=== PATIENT | male | born 1945 | race American Indian/Alaskan Native ===

== ENCOUNTER 2017-07-17 08:45 | Outpatient (CLI) | payer MEDICARE ==
[2017-07-17] MEDS ORDERED: NACL ONE (09:35)
[2017-07-17 09:42] LABS: Blood Urea Nitrogen 14 mg/dL (9-20)
--- NOTE | 2017-07-17 13:44 | Cat Scan Report ---
CT of the abdomen and pelvis with and without IV contrast and with oral contrast. History: Hematuria, renal stone. Findings: There are multiple sharply circumscribed hypodense lesions within the liver involving both lobes treated the largest of these is 2.2 cm in diameter. The spleen and pancreas are normal. A prominent calcified gallstone is present with no thickening of the gallbladder wall. There is no biliary dilatation. There is a 7 mm in diameter nodule in the left adrenal gland. Right adrenal gland is normal. The precontrast study demonstrates 3 tiny calculi in the right kidney with no hydronephrosis. A single tiny calculus is seen in the upper pole of the left kidney with no hydronephrosis. Multiple small bilateral renal cysts are present. No ureteral dilatation is seen. The prostate is severely enlarged with extrinsic compression of the base of the urinary bladder. There are no other pelvic masses. No significant bony findings are seen. Impression: 1. Multiple hepatic cysts. 2. Benign left adrenal nodule. 3. Bilateral tiny renal stones 1-2 mm in size. No obstructive uropathy. Multiple bilateral renal cysts are present. 4. Severely enlarged prostate with extrinsic compression of the base of the urinary bladder. #5. Cholelithiasis.
== END 2017-07-17 08:46 | disposition home or self-care (01) ==
LOC: CT 08:45
PROVIDERS: ATTEND Urology
DX: N20.2 Calculus of kidney with calculus of ureter (principal); K80.20 Calculus of gallbladder without cholecystitis without obstruction; N28.1 Cyst of kidney, acquired; E27.8 Other specified disorders of adrenal gland; N40.0 Benign prostatic hyperplasia without lower urinary tract symptoms; K76.89 Other specified diseases of liver; N32.89 Other specified disorders of bladder; F17.200 Nicotine dependence, unspecified, uncomplicated
CPT/HCPCS: 36415; 74178; 82565; 84520; Q9967

== ENCOUNTER 2018-12-21 08:48 | Outpatient (CLI) | payer MEDICARE ==
--- NOTE | 2018-12-21 09:24 | XRay Report ---
ABDOMEN RADIOGRAPH INDICATION: Calculus of kidney. COMPARISON: 07/17/2017 CT. FINDINGS: Single frontal abdominal radiograph demonstrates nonobstructive bowel gas pattern. Descending colon stool/possible constipation. Few pelvic vascular calcifications. Few bony degenerative changes as lower lumbar. Bilateral SI joint sclerosis also not excluded. CONCLUSION: No acute abdominal radiographic abnormality with tiny, 1-2 mm bilateral renal calculi known by prior CT may be well below the threshold of plain radiographic detection. Thank you for the opportunity to participate in this patient's care.
--- NOTE | 2018-12-21 13:20 | Ultrasound Report ---
ULTRASOUND RENAL BILATERAL INDICATION: Calculus of kidney. COMPARISON: 09/23/2018. FINDINGS: Renal sonography suggests mild increased renal cortical echogenicity. Grossly preserved contours. Few small echogenic gallstones with mild shadowing incidentally noted about the gallbladder neck, image 12. RIGHT KIDNEY estimated at 10.9 x 5.8 x 5.8 cm with cortical thickness of 1.4 cm. No hydronephrosis. LEFT KIDNEY is 10.5 x 4.3 x 4.61 m with cortical thickness of 1.3 cm. No hydronephrosis, though slight renal pelvis fullness may now be noted. Imaged URINARY BLADDER demonstrates a 5.5 x 4.3 cm rounded prostatic soft tissue with few small intrinsic echogenicities/calcifications, indenting the bladder base as on image 31, amongst others. Please also correlate clinically and with PSA. CONCLUSION: Enlarged prostate indenting the bladder base and underlying medical renal disease suspected sonographically in this patient with few other findings as cholelithiasis and slight left renal collecting system fullness, as described. Please correlate. Thank you for the opportunity to participate in this patient's care.
== END 2018-12-21 08:49 | disposition home or self-care (01) ==
LOC: US 08:48
PROVIDERS: ATTEND Urology
DX: N20.0 Calculus of kidney (principal); K80.20 Calculus of gallbladder without cholecystitis without obstruction; N40.0 Benign prostatic hyperplasia without lower urinary tract symptoms; E78.00 Pure hypercholesterolemia, unspecified; I10 Essential (primary) hypertension; K21.9 Gastro-esophageal reflux disease without esophagitis; Z87.891 Personal history of nicotine dependence
CPT/HCPCS: 74018; 76770

== ENCOUNTER 2021-05-21 05:58 | Day surgery (SDC) | payer MEDICARE ==
[2021-05-21] MEDS ORDERED: LACTATED RINGERS 1,000 ML ONE (06:48)
[2021-05-21] MEDS ORDERED: LACTATED RINGERS 1,000 ML IV SCH (07:00)
[2021-05-21] MEDS ORDERED: propofoL 200 MG/20 ML VIAL IV ONE (07:22)
[2021-05-21] MEDS ORDERED: HYDROmorphone 1 MG/1 ML INJ ONE (07:22)
[2021-05-21] MEDS ORDERED: LIDOCAINE MPF (2%) 20 MG/1 ML VIAL 5 ML ONE (07:23)
[2021-05-21] MEDS ORDERED: HYDROmorphone 1 MG/1 ML INJ IV PRN ×2 (08:21)
[2021-05-21] MEDS ORDERED: ONDANSETRON 4 MG/2 ML INJ IV PRN (08:21)
--- NOTE | 2021-05-21 08:23 | Anesthesia Day of Surgery ---
Anesthesia Day of Surgery - Day of Surgery Patient Examined: Yes Patient H&P Reviewed: Yes Patient is NPO: Yes
--- NOTE | 2021-05-21 08:24 | Anesthesia Consultation ---
Anesthesia Consult and Med Hx Date of service: 05/21/21 - Airway Anesthetic Teeth Evaluation: Dentures, Edentulous ROM Head & Neck: Adequate Mental/Hyoid Distance: Adequate Mallampati Class: Class II Intubation Access Assessment: Good - Pre-Operative Health Status ASA Pre-Surgery Classification: ASA2 Proposed Anesthetic Plan: General - Pulmonary Hx Smoking: Yes (STOPPED X 5 YRS (1 PPD)) Hx Respiratory Symptoms: No Hx Sleep Apnea: No (PRICILA PRE SCREEN HIGH RISK) - Cardiovascular System Hx Hypertension: Yes (X 3 YRS) - Gastrointestinal Hx Gastroesophageal Reflux Disease: Yes - Hematic Hx Sickle Cell Disease: No - Other Systems Hx Alcohol Use: Yes (2-3 DRINKS PER DAY) Hx Substance Use: Yes (MARIJUANA 3-4 X PER DAY) Hx Cancer: No Hx Obesity: No
[2021-05-21] MEDS ORDERED: ceFAZolin/Water 2 GM/20 ML 2 GM/20 ML SYRINGE IV ONE (08:45)
[2021-05-21] MEDS ORDERED: METOCLOPRAMIDE 10 MG/2 ML INJ IV NR (09:00)
[2021-05-21] MEDS ORDERED: WATER FOR IRRIG STERILE 2000 ML IR ONE (09:45)
[2021-05-21] MEDS ORDERED: FUROSEMIDE 40 MG/4 ML INJ ONE (09:54)
[2021-05-21] MEDS ORDERED: FAMOTIDINE 20 MG/2 ML INJ IV SCH (10:00)
--- NOTE | 2021-05-21 10:59 | Post Operative Note ---
Date of procedure: 05/21/21 Pre-op diagnosis: hematuria stricture Post-op diagnosis: same Findings: mass // stricture irereg Procedure: cysto dil bipsies Anesthesia: GETA Surgeon: JUDY JIM Estimated blood loss: minimal Pathology: list (bn and urethra) Specimen disposition: to lab Condition: stable Disposition: PACU
--- NOTE | 2021-05-21 11:00 | Discharge Summary ---
Short Stay Discharge Plan Activity: other (no strain ing ) Weight Bearing Status: Full Weight Bearing Diet: low fat, low cholesterol, low salt Special Instructions: other (folay care ) Durable Medical Equipment Needed Upon Discharge: other (walters) Follow up with: ITZEL CORADO MD [Primary Care Provider] - 7 Days JUDY JIM MD [Staff Physician] - 7 Days Forms: Outpatient Surgery DC Inst.
[2021-05-21] MEDS ORDERED: PHENAZOPYRIDINE 200 MG TAB PO ONE ×2 (11:04→11:10)
[2021-05-21 12:10] VITALS: BP 146/78
--- NOTE | 2021-05-21 12:55 | Operative Report ---
DATE OF SURGERY: 05/21/2021 PREOPERATIVE DIAGNOSES: Urethral stricture, hematuria. POSTOPERATIVE DIAGNOSES: Urethral stricture, hematuria with a mass in the urethra, irregularity of the bladder neck and very large elevated prostate. PROCEDURES: Cystoscopy, urethral dilatation, biopsies of the urethra and bladder neck masses, insertion of Councill catheter. SURGEON: Josef Major MD. ANESTHESIA: General. FINDINGS: This is a gentleman, who has been seen in the past, most recently treated by Dr. Dubose, has hematuria. He has diminished flow. He now presents for evaluation. DESCRIPTION OF PROCEDURE: The patient was brought to the OR and placed on the operating table. Following induction of anesthesia, placed in lithotomy position, prepped and draped in usual sterile fashion. Cystourethroscopy showed a very rock-hard stricture with evidence of a possible mass. This was biopsied after we placed a wire in the bladder under fluoroscopic guidance. Once we dilated this to 22-Malian, we could only use a 20-Malian sheath. It was so tight, we got to the bladder neck, there were irregularities. This was biopsied as well. Prostate was well elevated well into the bladder. At this point, we could not get good visualization. The mass was so big, it looked like prostate, so we placed a Councill catheter. This may need to be a staged procedure. The patient tolerated the procedure well. The cystogram showed good position of the well-elevated bladder from the prostate. Brought to recovery in stable condition. TID: [id number] RECEIPT: [id number] ALICIA/DARRICK
--- NOTE | 2021-05-21 15:46 | Fluoroscopy Report ---
FL cystogram static-OR INDICATION / CLINICAL INFORMATION: Urethral and bladder mass. COMPARISON: CT from 07/17/2017. TECHNIQUE: Patient was catheterized and 20 mL of contrast was administered in a retrograde fashion in to the bladder in the urology department. Radio Commentator, filled frontal, filled oblique, and postvoid images were obtained. FINDINGS: Radio Commentator imaging demonstrates no significant abnormality. Colon filled images, the bladder dem onstrates normal contour and shape with 6.8 cm filling defect in the bladder. Postdrainage demonstrat es diminished bladder volume with persistent filling defect. No evidence of contrast extravasation. IMPRESSION: Bladder mass. No evidence of contrast extravasation. Signer Name: Marcelino Richardson MD Signed: 05/21/2021 3:42 PM Workstation Name: [id number]
--- NOTE | 2021-05-21 16:17 | Post Anesthesia Evaluation ---
- Post Anesthesia Evaluation Patient Participated: Yes Airway Patent: Yes Stable Respiratory Function: Yes Nausea/Vomiting: No Temp > 96.8F: Yes Pain Manageable: Yes Adequeate Hydration: Yes Anesthesia Complications: No Block Receding Appropriately: Not Applicable Patient on Ventilator: No
== END 2021-05-21 12:54 | disposition home or self-care (01) ==
LOC: OR 05:58
PROVIDERS: ATTEND Urology
DX: N35.819 Other urethral stricture, male, unspecified site (principal); Z20.822 Contact with and (suspected) exposure to COVID-19; R31.9 Hematuria, unspecified; E78.00 Pure hypercholesterolemia, unspecified; I10 Essential (primary) hypertension; K21.9 Gastro-esophageal reflux disease without esophagitis; Z87.442 Personal history of urinary calculi; Z88.8 Allergy status to other drugs, medicaments and biological substances; Z88.6 Allergy status to analgesic agent; Z79.899 Other long term (current) drug therapy; Z87.891 Personal history of nicotine dependence; Z98.49 Cataract extraction status, unspecified eye; Z98.890 Other specified postprocedural states; Z72.89 Other problems related to lifestyle; Z80.8 Family history of malignant neoplasm of other organs or systems
CPT/HCPCS: 52281; 74430; 88305; A4217; C1726; C1769; J0690; J1170; J1940; J2704; J2765; J7120; Q9967; U0003; 88342

== ENCOUNTER 2021-11-08 10:39 | Outpatient (CLI) | payer MEDICARE ==
--- NOTE | 2021-11-08 11:47 | Cat Scan Report ---
CT ABDOMEN AND PELVIS WITHOUT CONTRAST INDICATION / CLINICAL INFORMATION: ENLARGED PROSTATE WITH LOWER URINARY TRACT SYMPTOM. TECHNIQUE: Axial CT images were obtained through the abdomen and pelvis without IV contrast. All CT scans at this location are performed using CT dose reduction for ALARA by means of automated exposure control. COMPARISON: 07/17/2017 FINDINGS: LOWER CHEST: No significant abnormality. AORTA / ARTERIES: Mild atherosclerotic calcification without acute abnormality. IVC / VEINS: No significant abnormality. LYMPH NODES: No significant adenopathy. COLON: Diverticulosis without acute inflammation. APPENDIX: No significant abnormality. STOMACH / SMALL BOWEL: No significant abnormality. PERITONEUM: No free fluid. No free air. No fluid collection. LIVER: Multiple hepatic cysts which appear more prominent compared to prior CT. GALLBLADDER: Cholelithiasis. BILE DUCTS: No significant abnormality. PANCREAS: No significant abnormality. SPLEEN: No significant abnormality. ADRENALS: No significant abnormality. RIGHT KIDNEY / URETER: Multiple renal cysts which appear more prominent compared to prior CT. LEFT KIDNEY / URETER: There is a 1.3 cm stone within the upper pole of the kidney. There is also a 1. 4 cm stone at the distal ureterovesicular junction which causes moderate hydroureter and moderate hyd ronephrosis. Several renal cysts which appear increased compared to prior CT. URINARY BLADDER: Large soft tissue prominence is noted within the urinary bladder lumen, likely repre senting a severely enlarged prostate. REPRODUCTIVE ORGANS: Prostate is enlarged, not significant change from prior CT. SKELETAL SYSTEM: No significant abnormality. ADDITIONAL FINDINGS: None. IMPRESSION: 1. There is a 1.4 cm stone within the left ureterovesicular junction which causes moderate hydrourete r and moderate hydronephrosis. There is also an additional 1.3 cm stone within the left kidney. 2. Markedly enlarged prostate encroaching upon the posterior urinary bladder wall. This does not appe ar significantly changed in size compared to prior CT. 3. Urinary bladder stone measuring up to 0.6 cm. 4. Other findings as above. Signer Name: Herman Krause DO Signed: 11/08/2021 11:43 AM Workstation Name: [email or web address]
== END 2021-11-08 10:40 | disposition home or self-care (01) ==
LOC: CT 10:39
PROVIDERS: ATTEND Urology
DX: K80.20 Calculus of gallbladder without cholecystitis without obstruction (principal); N40.1 Benign prostatic hyperplasia with lower urinary tract symptoms; I25.10 Atherosclerotic heart disease of native coronary artery without angina pectoris; I70.0 Atherosclerosis of aorta; K57.30 Diverticulosis of large intestine without perforation or abscess without bleeding; K76.89 Other specified diseases of liver; N28.1 Cyst of kidney, acquired; N20.0 Calculus of kidney; N13.30 Unspecified hydronephrosis
CPT/HCPCS: 74176

== ENCOUNTER 2021-12-24 05:53 | Inpatient (IN) | payer MEDICARE ==
[2021-12-24] MEDS ORDERED: LACTATED RINGERS 1,000 ML IV SCH (06:00)
[2021-12-24] MEDS ORDERED: ONDANSETRON 4 MG/2 ML INJ IV PRN (07:35)
--- NOTE | 2021-12-24 07:35 | Anesthesia Consultation ---
Anesthesia Consult and Med Hx - Airway Anesthetic Teeth Evaluation: Dentures (full upper and lower) ROM Head & Neck: Adequate Mental/Hyoid Distance: Adequate Mallampati Class: Class II Intubation Access Assessment: Probably Good (previous LMA 4) - Pre-Operative Health Status ASA Pre-Surgery Classification: ASA2 Proposed Anesthetic Plan: General - Pulmonary Hx Smoking: Yes (former smoker quit cigs >5yrs ago; currently THC only) Hx Respiratory Symptoms: No Hx Sleep Apnea: No (PRICILA PRE SCREEN HIGH RISK) - Cardiovascular System Hx Hypertension: Yes (took amlodipine last night) Hx Heart Attack/AMI: No Hx Percutaneous Transluminal Coronary Angioplasty (PTCA): No - Central Nervous System CVA: No - Endocrine Hx Renal Disease: No Hx Liver Disease: No Hx Insulin Dependent Diabetes: No Hx Non-Insulin Dependent Diabetes: No Hx Thyroid Disease: No - Other Systems Hx Substance Use: Yes (THC 3-4x/wk) - Additional Comments Anesthesia Medical History Comments: No hx anesthetic complications.
--- NOTE | 2021-12-24 07:35 | Anesthesia Day of Surgery ---
Anesthesia Day of Surgery - Day of Surgery Patient Examined: Yes Patient H&P Reviewed: Yes Patient is NPO: Yes
[2021-12-24] MEDS ORDERED: propofoL 200 MG/20 ML VIAL IV ONE (07:46)
[2021-12-24] MEDS ORDERED: LIDOCAINE MPF (2%) 20 MG/1 ML VIAL 5 ML ONE (07:47)
[2021-12-24] MEDS ORDERED: fentaNYL 100 MCG/2 ML INJ ONE (07:47)
[2021-12-24] MEDS ORDERED: HYDROcodone/ACETAMINOPHEN 5-325 MG TAB PO PRN ×2 (08:00→11:59)
[2021-12-24] MEDS ORDERED: ceFAZolin/STERILE WATER 2 GM/20 ML SYRINGE IV NR (08:07)
[2021-12-24] MEDS ORDERED: ceFAZolin/Water 2 GM/20 ML 2 GM/20 ML SYRINGE IV ONE (08:12)
[2021-12-24] MEDS ORDERED: ONDANSETRON 4 MG/2 ML INJ ONE (08:42)
[2021-12-24] MEDS ORDERED: LIDOCAINE 2% UROJECT 10 ML JELLY ONE (08:55)
[2021-12-24] MEDS ORDERED: IOHEXOL 300 MG/ML 50ML IV ONE (09:04)
[2021-12-24] MEDS ORDERED: METHYLENE BLUE 50 MG/10 ML AMP ONE (09:06)
[2021-12-24] MEDS ORDERED: FUROSEMIDE 40 MG/4 ML INJ ONE (09:23)
[2021-12-24] MEDS ORDERED: SODIUM CHLORIDE IRRI 1000 ML 1,000 ML IR ONE ×4 (09:35→19:01)
--- NOTE | 2021-12-24 09:37 | Post Operative Note ---
Date of procedure: 12/24/21 Pre-op diagnosis: stricture bph left stones Post-op diagnosis: same Findings: 3 cm penile ureterhal struictue large gland inflammed Procedure: cysto dil cystogram attempted rpg Anesthesia: GETA Surgeon: JUDY JIM Estimated blood loss: 50-100ml Pathology: none Condition: stable Disposition: PACU
--- NOTE | 2021-12-24 09:38 | Discharge Summary ---
Short Stay Discharge Plan Activity: other Weight Bearing Status: Full Weight Bearing Diet: low fat Special Instructions: other (cath care ) Durable Medical Equipment Needed Upon Discharge: other (walters) Follow up with: KRZYSZTOF MCCALLUM MD [Primary Care Provider] - 7 Days JUDY JIM MD [Staff Physician] - 3 Days
[2021-12-24] MEDS: HYDROmorphone 1 MG/1 ML INJ IV PRN ×2 (10:00→10:10)
--- NOTE | 2021-12-24 10:34 | Fluoroscopy Report ---
INTRAOPERATIVE FLUOROSCOPY INDICATION / CLINICAL INFORMATION: URETERAL STRICTURE, KIDNEY STONES. TECHNIQUE: Intraoperative spot images were obtained during the procedure. FINDINGS: Intraoperative fluoroscopy images See operative/procedure note by performing physician for full details. Fluoroscopy Time: 0.4 minutes. Fluoroscopy Images: 4. Signer Name: Rush Diggs MD Signed: 12/24/2021 10:29 AM Workstation Name: [email or web address]
--- NOTE | 2021-12-24 11:26 | Consultation ---
History of Present Illness - Reason for Consult Consult date: 12/24/21 Renal calculi Requesting physician: JUDY JIM - History of Present Illness 76-year-old male with past medical history of hypertension, former smoking, and hematuria with BPH and renal calculi who presents after attempted cystoscopic stent placement for evaluation for PCN for PCNL. Discussed situation with patient who currently is denying any flank pain or pelvic pain. Discussed placement of PCN tomorrow. Patient is uncertain if he wants this performed. Past History Past Medical History: hypertension, other (Renal calculi, BPH, urethral strict ures) Past Surgical History: Other (urethral strictures dilatations, BPH procedures) Social history: no significant social history Family history: no significant family history Medications and Allergies Allergies Allergy/AdvReac Type Severity Reaction Status Date / Time aspirin AdvReac GI UPSET / Verified 12/13/21 17:52 ABD PAIN Home Medications Medication Instructions Recorded Confirmed Last Taken Type Tamsulosin [Flomax] 0.4 mg PO QDAY 09/21/13 12/24/21 12/23/21 09:00 History AtorvaSTATin [Lipitor] 40 mg PO QHS 05/14/21 12/24/21 12/23/21 22:00 History Cimetidine [Tagamet Hb] 200 mg PO PRN PRN 05/14/21 12/13/21 Unknown History Lactobacillus Combination No.8 1 each PO DAILY 05/14/21 12/24/21 12/23/21 09:00 History [Adult Probiotic] Multivit-Min/FA/Lycopen/Lutein 1 each PO DAILY 05/14/21 12/24/21 12/23/21 09:00 History [Centrum Silver Tablet] amLODIPine [Norvasc] 5 mg PO DAILY 05/14/21 12/24/21 12/23/21 22:00 History Active Meds: Active Medications Hydrocodone Bitart/Acetaminophen (Hydrocodone/Acetaminophen 5-325 Mg Tab) 2 each PO ONCE PRN PRN Reason: Pain, Moderate (4-6) Hydromorphone HCl (Hydromorphone 1 Mg/1 Ml Inj) 0.5 mg IV Q10MIN PRN PRN Reason: Pain , Severe (7-10) Stop: 12/24/21 20:00 Last Admin: 12/24/21 10:10 Dose: 0.5 mg Lactated Ringer's (Lactated Ringers) 1,000 mls @ 100 mls/hr IV DIRECT [place] Stop: 12/24/21 23:59 Last Admin: 12/24/21 06:30 Dose: 100 mls/hr Potassium Chloride/Dextrose/Sod Cl (D5w/0.45% Nacl/Kcl 20 Meq) 20 meq in 1,000 mls @ 125 mls/hr IV DIRECT [place] Cefazolin Sodium (Ancef/Ns 1 Gm/50 Ml) 1 gm in 50 mls @ 100 mls/hr IV Q8H [place]; Protocol Stop: 12/25/21 12:29 Ondansetron HCl (Ondansetron 4 Mg Odt Tab) 4 mg PO Q8H PRN PRN Reason: Nausea And Vomiting Oxycodone/Acetaminophen (Oxycodone /Acetaminophen 5-325mg Tab) 1 tab PO Q6H PRN PRN Reason: Pain, Moderate (4-6) Review of Systems All systems: negative (see HPI) Exam - Constitutional Vitals: Temp Pulse Resp BP Pulse Ox 97.5 F L 74 14 129/75 99 12/24/21 10:45 12/24/21 10:45 12/24/21 10:45 12/24/21 10:45 12/24/21 10:45 General appearance: Present: no acute distress - EENT Eyes: Present: EOM intact ENT: hearing intact - Respiratory Respiratory effort: normal - Extremities Extremities: no ischemia, No edema - Abdominal General gastrointestinal: Present: soft, non-tender Male genitourinary: Present: asymmetrical (Horton in place) - Psychiatric Psychiatric: appropriate mood/affect, cooperative Results - Imaging and Cardiology CT scan - abdomen: report reviewed, image reviewed Assessment and Plan 76-year-old male with multiple urologic issues including massively enlarged prostate with left-sided renal calculi. Patient has minimal symptoms, but has a left lower pole large renal calculi and a left impacted ureterovesicular calculi both of which are large and were unable to be addressed cystoscopically due to the massively enlarged prostate. Discussed left-sided percutaneous nephrostomy with patient. Risks, benefits, and alternatives discussed. Patient wants to talk this over with Dr. Jim before agreeing to any procedures.
[2021-12-24] MEDS ORDERED: ACETAMINOPHEN 325 MG TAB PO PRN ×3 (11:52→12:03)
[2021-12-24] MEDS ORDERED: ONDANSETRON 4 MG ODT TAB PO PRN (12:00)
[2021-12-24] MEDS ORDERED: oxyCODONE /ACETAMINOPHEN 5-325MG TAB PO PRN (12:00)
--- NOTE | 2021-12-24 12:08 | Post Anesthesia Evaluation ---
- Post Anesthesia Evaluation Patient Participated: Yes Airway Patent: Yes Stable Respiratory Function: Yes Nausea/Vomiting: No Temp > 96.8F: Yes Pain Manageable: Yes Adequeate Hydration: Yes Anesthesia Complications: No
[2021-12-24 12:39] LABS: BUN/Creatinine Ratio 14; Blood Urea Nitrogen 17 mg/dL (9-20); Calcium 10.3 mg/dL (8.4-10.2); Hemolysis Index 12
[2021-12-24] MEDS: HYDROcodone/ACETAMINOPHEN 5-325 MG TAB PO PRN ×2 (14:20→21:17)
--- NOTE | 2021-12-24 14:20 | Operative Report ---
DATE OF SURGERY: 12/24/2021 PREOPERATIVE DIAGNOSES: Left ureteral obstruction, left hydronephrosis, very large prostate, history of urethral stricture. POSTOPERATIVE DIAGNOSES: Left ureteral obstruction, left hydronephrosis, very large prostate, history of urethral stricture. PROCEDURES: Cystoscopy, urethral dilatation attempted retrograde. SURGEON: Josef Mjaor MD ANESTHESIA: General. FINDINGS: This is a gentleman with a very large prostate and urethral stricture. He was found to have a ureteral stone with really no significant pain, but moderate hydronephrosis. He now presents for treatment. DESCRIPTION OF PROCEDURE: The patient was brought to the operating room and placed on the operating table. Following induction of anesthesia, placed in lithotomy position, prepped and draped in usual sterile fashion. Approximately 3-4 cm into the urethra, there was a dense long stricture. Before manipulating, we placed a wire in the bladder under fluoroscopic guidance and dilated that to 20-Mongolian. We used a 20-Mongolian sheath. It should be noted once we got to the prostatic urethra, there was severe elevation of bladder neck. We were able to get into the bladder, but the prostate deviated more to the right than to the left and when we were looking, it looked like we saw the orifice was with lot of inflammatory changes around it. We tried our best even with indigo to visualize the trigone, but every time we manipulated the scope there would be oozing from this large enormous prostate. We gave him some Lasix with indigo, could not definitively identify the orifice with the inflammatory changes around it, so we decided to stop. The patient tolerated the procedure well. A 22 was placed over an Amplatz wire and irrigation was minimally tinge. We irrigated him in the recovery room, but it was even less bloody, but we decided to stop because we did not want to cause more damage. I spoke to Dr. Kent who thought the prostate was just huge, but he could put a percutaneous drainage tube in the left kidney to try to cool this down and maybe we can go ahead it from above with a flexible ureteroscope from above. The patient tolerated the procedure well. I spoke to the family. Again, there is a ____. TID: [id number] RECEIPT: [id number] Maikel/ADAMS/IQB
[2021-12-24] MEDS: ceFAZolin/NS 1 GM/50 ML 1 GM/50 ML BAG IV SCH (15:47)
--- NOTE | 2021-12-24 16:05 | Progress Note ---
Assessment and Plan urine tingd itrrigates may also need embiolization for left perc tomorrow expalined again Subjective Date of service: 12/24/21 Principal diagnosis: stones huge prostate stricture Objective - Constitutional Vitals: Vital Signs - 12hr 12/24/21 12/24/21 12/24/21 06:20 06:35 09:45 Temperature 98.8 F 98.8 F 97.8 F Pulse Rate 81 81 77 Respiratory 16 16 13 Rate Blood Pressure 139/77 139/77 110/71 O2 Sat by Pulse 99 99 100 Oximetry 12/24/21 12/24/21 12/24/21 09:50 09:55 10:00 Temperature Pulse Rate 76 73 69 Respiratory 12 20 12 Rate Blood Pressure 141/76 138/77 139/67 O2 Sat by Pulse 100 100 100 Oximetry 12/24/21 12/24/21 12/24/21 10:10 10:15 10:30 Temperature Pulse Rate 72 71 Respiratory 12 17 12 Rate Blood Pressure 125/74 136/76 O2 Sat by Pulse 99 99 Oximetry 12/24/21 12/24/21 12/24/21 10:40 10:45 11:45 Temperature 97.5 F L 97.9 F Pulse Rate 74 74 Respiratory 14 14 16 Rate Blood Pressure 129/75 129/75 O2 Sat by Pulse 99 99 Oximetry 12/24/21 12/24/21 12/24/21 12:45 13:45 14:20 Temperature 98.0 F 98.1 F Pulse Rate 84 84 Respiratory 12 13 13 Rate Blood Pressure 114/68 116/68 O2 Sat by Pulse 97 99 Oximetry 12/24/21 12/24/21 14:45 15:20 Temperature 98.5 F Pulse Rate 83 Respiratory 13 12 Rate Blood Pressure 129/76 O2 Sat by Pulse 99 Oximetry General appearance: Present: no acute distress, other - Labs CBC & Chem 7: 12/24/21 12:00 Labs: Abnormal lab results 12/24/21 Range/Units 12:00 Glucose 105 H (75-100) mg/dL Calcium 10.3 H (8.4-10.2) mg/dL Medications & Allergies - Medications Allergies/Adverse Reactions: Allergies aspirin Adverse Reaction (Verified 12/13/21 17:52) GI UPSET / ABD PAIN Home Medications: Home Medications Medication Instructions Recorded Confirmed Last Taken Type Tamsulosin [Flomax] 0.4 mg PO QDAY 10/29/13 01/31/22 01/30/22 09:00 History AtorvaSTATin [Lipitor] 40 mg PO QHS 05/14/21 12/24/21 12/23/21 22:00 History Cimetidine [Tagamet Hb] 200 mg PO PRN PRN 05/14/21 12/13/21 Unknown History Lactobacillus Combination No.8 1 each PO DAILY 05/14/21 12/24/21 12/23/21 09:00 History [Adult Probiotic] Multivit-Min/FA/Lycopen/Lutein 1 each PO DAILY 05/14/21 12/24/21 12/23/21 09:00 History [Centrum Silver Tablet] amLODIPine [Norvasc] 5 mg PO DAILY 05/14/21 12/24/21 12/23/21 22:00 History Active Medications: Generic Name Dose Route Start Last Admin Trade Name Freq PRN Reason Stop Dose Admin Acetaminophen 650 mg 12/24/21 12:03 Acetaminophen 325 Mg Tab PO Q4H PRN Pain MILD(1-3)/Fever >100.5/LINK Hydrocodone Bitart/Acetaminophen 2 each 12/24/21 12:03 12/24/21 14:20 Hydrocodone/Acetaminophen 5-325 Mg Tab PO 1 each Q6H PRN Administration Pain, Moderate (4-6) Hydromorphone HCl 0.5 mg 12/24/21 08:00 12/24/21 10:10 Hydromorphone 1 Mg/1 Ml Inj IV 12/24/21 20:00 0.5 mg Q10MIN PRN Administration Pain , Severe (7-10) Potassium Chloride/Dextrose/Sod Cl 20 meq in 1,000 mls @ 125 mls/hr 12/24/21 12:00 D5w/0.45% Nacl/Kcl 20 Meq IV DIRECT [place] Cefazolin Sodium 1 gm in 50 mls @ 100 mls/hr 12/24/21 16:00 12/24/21 15:47 Ancef/Ns 1 Gm/50 Ml IV 12/25/21 16:29 100 mls/hr Q8H [place] Administration Protocol Ondansetron HCl 4 mg 12/24/21 12:00 Ondansetron 4 Mg Odt Tab PO Q8H PRN Nausea And Vomiting
--- NOTE | 2021-12-24 16:27 | Consultation ---
History of Present Illness - Reason for Consult Consult date: 12/24/21 Medical management Requesting physician: JUDY JIM - History of Present Illness 76 YO Male with HTN, BPH, Renal Calculi admitted for urologic surgery. Consult placed by Dr. Jim for medical management. Patient seen and evaluated in his room. Patient resting comfortably. Patient denies fever, chills, chest pain, palpitation, productive cough, skin rash, recent ill contacts, or known exposure to COVID-19. Past History Past Medical History: hypertension, other (Renal calculi, BPH, urethral strictures) Past Surgical History: Other (urethral strictures dilatations, BPH procedures) Social history: no significant social history Family history: no significant family history Medications and Allergies Allergies Allergy/AdvReac Type Severity Reaction Status Date / Time aspirin AdvReac GI UPSET / Verified 12/13/21 17:52 ABD PAIN Home Medications Medication Instructions Recorded Confirmed Last Taken Type Tamsulosin [Flomax] 0.4 mg PO QDAY 09/21/13 12/24/21 12/23/21 09:00 History AtorvaSTATin [Lipitor] 40 mg PO QHS 05/14/21 12/24/21 12/23/21 22:00 History Cimetidine [Tagamet Hb] 200 mg PO PRN PRN 05/14/21 12/13/21 Unknown History Lactobacillus Combination No.8 1 each PO DAILY 05/14/21 12/24/21 12/23/21 09:00 History [Adult Probiotic] Multivit-Min/FA/Lycopen/Lutein 1 each PO DAILY 05/14/21 12/24/21 12/23/21 09:00 History [Centrum Silver Tablet] amLODIPine [Norvasc] 5 mg PO DAILY 05/14/21 12/24/21 12/23/21 22:00 History Active Meds: Active Medications Acetaminophen (Acetaminophen 325 Mg Tab) 650 mg PO Q4H PRN PRN Reason: Pain MILD(1-3)/Fever >100.5/LINK Hydrocodone Bitart/Acetaminophen (Hydrocodone/Acetaminophen 5-325 Mg Tab) 2 each PO Q6H PRN PRN Reason: Pain, Moderate (4-6) Last Admin: 12/24/21 14:20 Dose: 1 each Hydromorphone HCl (Hydromorphone 1 Mg/1 Ml Inj) 0.5 mg IV Q10MIN PRN PRN Reason: Pain , Severe (7-10) Stop: 12/24/21 20:00 Last Admin: 12/24/21 10:10 Dose: 0.5 mg Potassium Chloride/Dextrose/Sod Cl (D5w/0.45% Nacl/Kcl 20 Meq) 20 meq in 1,000 mls @ 125 mls/hr IV DIRECT [place] Cefazolin Sodium (Ancef/Ns 1 Gm/50 Ml) 1 gm in 50 mls @ 100 mls/hr IV Q8H [place]; Protocol Stop: 12/25/21 16:29 Last Admin: 12/24/21 15:47 Dose: 100 mls/hr Ondansetron HCl (Ondansetron 4 Mg Odt Tab) 4 mg PO Q8H PRN PRN Reason: Nausea And Vomiting Review of Systems Constitutional: no weight loss, no weight gain, no fever Ears, nose, mouth and throat: no ear pain, no tinnitis, no nose pain, no nasal discharge Cardiovascular: no chest pain, no palpitations, no edema, no lightheadedness Respiratory: no cough, no hemoptysis, no shortness of breath Gastrointestinal: no abdominal pain, no vomiting, no constipation Genitourinary Male: dysuria Rectal: no pain, no incontinence Musculoskeletal: no neck stiffness, no neck pain, no arm numbness/tingling, no low back pain, no shooting leg pain Integumentary: no rash, no redness, no wounds, no boils Neurological: no head injury, no paralysis, no numbness, no ataxia Psychiatric: no anxiety, no sleep disturbances, no hypersomnia, no change in libido, no suicidal ideation Endocrine: no cold intolerance, no excessive thirst, no polyuria, no excessive sweating Allergic/Immunologic: no allergic rhinitis, no wheezing Exam - Constitutional Vitals: Temp Pulse Resp BP Pulse Ox 98.5 F 83 12 129/76 99 12/24/21 14:45 12/24/21 14:45 12/24/21 15:20 12/24/21 14:45 12/24/21 14:45 General appearance: Present: no acute distress, well-nourished - EENT Eyes: Present: PERRL ENT: hearing intact, clear oral mucosa - Neck Neck: Present: supple, normal ROM - Respiratory Respiratory effort: normal Respiratory: bilateral: CTA - Cardiovascular Heart Sounds: Present: S1 & S2. Absent: rub, click - Extremities Extremities: pulses symmetrical, No edema Peripheral Pulses: within normal limits - Abdominal General gastrointestinal: Present: soft, non-tender, non-distended, normal bowel sounds Male genitourinary: Present: normal - Integumentary Integumentary: Present: clear, warm, dry - Musculoskeletal Musculoskeletal: gait normal, strength equal bilaterally - Psychiatric Psychiatric: appropriate mood/affect, intact judgment & insight - Neurologic Neurologic: CNII-XII intact, moves all extremities Results - Labs CBC & Chem 7: 12/24/21 12:00 Labs: Abnormal lab results 12/24/21 Range/Units 12:00 Glucose 105 H (75-100) mg/dL Calcium 10.3 H (8.4-10.2) mg/dL Assessment and Plan - Patient Problems (1) Hypertension Current Visit: Yes Status: Acute Qualifiers: Hypertension type: primary hypertension Qualified Code(s): I10 - Essential (primary) hypertension Plan to address problem: Monitor blood pressure every shift, continue medical management. (2) Renal calculi Current Visit: Yes Status: Acute Plan to address problem: Interventional radiology team consulted. Patient is pending percutaneous nephrostomy tube in a.m.
--- NOTE | 2021-12-24 17:49 | Cat Scan Report ---
CT ABDOMEN AND PELVIS WITHOUT CONTRAST INDICATION / CLINICAL INFORMATION: Hydronephrosis with left renal calculi. Prone.. TECHNIQUE: Axial CT images were obtained through the abdomen and pelvis without IV contrast. All CT scans at this location are performed using CT dose reduction for ALARA by means of automated exposure control. COMPARISON: CT from 11/08/2021. FINDINGS: LOWER CHEST: Bibasilar volume loss. LIVER: Multiple bilobar hepatic cysts are again seen. GALLBLADDER/BILIARY TREE: No significant abnormality PANCREAS: No significant abnormality SPLEEN: No significant abnormality ADRENALS: No significant abnormality KIDNEYS / URETER: 1.4 cm stone is present at the left UVJ with worsening, severe left hydronephrosis when compared to prior study from 11/08/2021. There is an additional 1 cm stone in the left lower vamsi e calyx. Multiple renal cysts. No urolithiasis or hydronephrosis on the right. URINARY BLADDER: Horton catheter decompresses the bladder. REPRODUCTIVE ORGANS: Marked prostatomegaly, which is again noted to protrude into the bladder. STOMACH / BOWEL: Small bowel is normal in caliber. Colonic diverticulosis without evidence of diverti culitis. The appendix is normal in caliber. LYMPH NODES: No significant adenopathy. VASCULATURE: Moderate atherosclerotic calcification without acute abnormality. OTHER: No free air, free fluid, or focal fluid collection is identified. SKELETAL SYSTEM: Degenerative changes of the spine. No acute osseous findings. IMPRESSION: 1. 1.4 cm obstructing stone at the left UVJ with worsening severe left hydroureteronephrosis. 2. Additional 1 cm nonobstructive left renal stone. Other stable chronic and incidental findings as a nury. Signer Name: Marcelino Richardson MD Signed: 12/24/2021 5:44 PM Workstation Name: [id number]
[2021-12-24] MEDS: D5W/0.45% NACL/KCL 20 MEQ 20 MEQ/1,000 ML BAG IV SCH (17:52)
[2021-12-25 07:57] LABS: Basophils % (Auto) 0.3 % (0.0-1.8); Eosinophils # (Auto) 0.5 K/mm3 (0.0-0.4); Eosinophils % (Auto) 6.8 % (0.0-4.3); Hematocrit 34.9 % (35.5-45.6); Hemoglobin 11.3 gm/dl (11.8-15.2); Lymphocytes # (Auto) 1.4 K/mm3 (1.2-5.4); Lymphocytes % (Auto) 19.8 % (13.4-35.0); Mean Corpuscular HGB Conc 32 % (32-34); Mean Corpuscular Volume 89 fl (84-94); Monocytes # (Auto) 0.4 K/mm3 (0.0-0.8); Monocytes % (Auto) 5.9 % (0.0-7.3); Platelet Count 184 K/mm3 (140-440); Red Blood Count 3.92 M/mm3 (3.65-5.03); Red Cell Distribution Width 13.6 % (13.2-15.2)
--- NOTE | 2021-12-25 09:22 | Progress Note ---
Assessment and Plan spoke again with pt diagrams drawn on board explained stones scarring blocked kidney and huge proste he now agrrees to perc Subjective Date of service: 12/25/21 Principal diagnosis: stones huge prostate stricture Objective - Constitutional Vitals: Vital Signs - 12hr 12/24/21 12/25/21 12/25/21 22:33 01:33 04:49 Temperature 97.7 F 98.1 F Pulse Rate 78 77 Respiratory 20 20 Rate Blood Pressure 136/71 134/76 O2 Sat by Pulse 96 98 95 Oximetry General appearance: Present: no acute distress - Neck Neck: supple - Respiratory Respiratory effort: normal Extremities: no ischemia - Gastrointestinal General gastrointestinal: Present: soft - Labs CBC & Chem 7: 12/25/21 07:39 12/24/21 12:00 Labs: Abnormal lab results 12/24/21 12/25/21 Range/Units 12:00 07:39 Hgb 11.3 L (11.8-15.2) gm/dl Hct 34.9 L (35.5-45.6) % Eos % (Auto) 6.8 H (0.0-4.3) % Eos # (Auto) 0.5 H (0.0-0.4) K/mm3 Glucose 105 H (75-100) mg/dL Calcium 10.3 H (8.4-10.2) mg/dL Medications & Allergies - Medications Allergies/Adverse Reactions: Allergies aspirin Adverse Reaction (Verified 12/13/21 17:52) GI UPSET / ABD PAIN Home Medications: Home Medications Medication Instructions Recorded Confirmed Last Taken Type Tamsulosin [Flomax] 0.4 mg PO QDAY 09/21/13 12/24/21 12/23/21 09:00 History AtorvaSTATin [Lipitor] 40 mg PO QHS 05/14/21 12/24/21 12/23/21 22:00 History Cimetidine [Tagamet Hb] 200 mg PO PRN PRN 05/14/21 12/13/21 Unknown History Lactobacillus Combination No.8 1 each PO DAILY 05/14/21 12/24/21 12/23/21 09:00 History [Adult Probiotic] Multivit-Min/FA/Lycopen/Lutein 1 each PO DAILY 05/14/21 12/24/21 12/23/21 09:00 History [Centrum Silver Tablet] amLODIPine [Norvasc] 5 mg PO DAILY 05/14/21 12/24/21 12/23/21 22:00 History Active Medications: Generic Name Dose Route Start Last Admin Trade Name Ana PRN Reason Stop Dose Admin Acetaminophen 650 mg 12/24/21 12:03 Acetaminophen 325 Mg Tab PO Q4H PRN Pain MILD(1-3)/Fever >100.5/LINK Hydrocodone Bitart/Acetaminophen 2 each 12/24/21 12:03 12/24/21 21:17 Hydrocodone/Acetaminophen 5-325 Mg Tab PO 1 each Q6H PRN Administration Pain, Moderate (4-6) Potassium Chloride/Dextrose/Sod Cl 20 meq in 1,000 mls @ 125 mls/hr 12/24/21 12:00 12/24/21 17:52 D5w/0.45% Nacl/Kcl 20 Meq IV 125 mls/hr DIRECT [place] Administration Cefazolin Sodium 1 gm in 50 mls @ 100 mls/hr 12/24/21 16:00 12/24/21 15:47 Ancef/Ns 1 Gm/50 Ml IV 12/25/21 16:29 100 mls/hr Q8H [place] Administration Protocol Ondansetron HCl 4 mg 12/24/21 12:00 Ondansetron 4 Mg Odt Tab PO Q8H PRN Nausea And Vomiting
[2021-12-25] MEDS ORDERED: LIDOCAINE 1%/EPINEPHRINE 1:100,000 VIAL (20 ML) INFILTRATI ONE ×3 (12:59→14:31)
[2021-12-25] MEDS ORDERED: HEPARIN 10,000 UNITS/10 ML VIAL ONE (12:59)
--- NOTE | 2021-12-25 13:02 | Progress Note ---
Assessment and Plan (1) Hypertension Current Visit: Yes Status: Acute Qualifiers: Hypertension type: primary hypertension Qualified Code(s): I10 - Essential (primary) hypertension Plan to address problem: Monitor blood pressure every shift, continue medical management. (2) Renal calculi Current Visit: Yes Status: Acute Plan to address problem: Interventional radiology team consulted. Patient is pending percutaneous nephrostomy tube in a.m. Subjective Date of service: 12/25/21 Principal diagnosis: stones huge prostate stricture Objective - Constitutional Vitals: Vital Signs - 12hr 12/25/21 12/25/21 01:33 04:49 Temperature 98.1 F Pulse Rate 77 Respiratory 20 Rate Blood Pressure 134/76 O2 Sat by Pulse 98 95 Oximetry - Labs CBC & Chem 7: 12/25/21 07:39 12/24/21 12:00 Labs: Abnormal lab results 12/25/21 Range/Units 07:39 Hgb 11.3 L (11.8-15.2) gm/dl Hct 34.9 L (35.5-45.6) % Eos % (Auto) 6.8 H (0.0-4.3) % Eos # (Auto) 0.5 H (0.0-0.4) K/mm3
[2021-12-25] MEDS ORDERED: SODIUM CHLORIDE IRRI 500 ML 500 ML IR ONE (13:05)
[2021-12-25] MEDS ORDERED: MIDAZOLAM 2 MG/2 ML INJ ONE (13:36)
[2021-12-25] MEDS ORDERED: fentaNYL 100 MCG/2 ML INJ ONE (13:36)
--- NOTE | 2021-12-25 14:06 | Post Anesthesia Evaluation ---
- Post Anesthesia Evaluation Other Comments: Patient was discharged from the department prior the post-op anesthesia rounds
[2021-12-25] MEDS ORDERED: MIDAZOLAM 2 MG/2 ML INJ IV ONE ×4 (14:15→14:40)
[2021-12-25] MEDS ORDERED: fentaNYL 100 MCG/2 ML INJ IV ONE ×4 (14:16→14:45)
--- NOTE | 2021-12-25 14:59 | Operative Report ---
Operative Report Operative Report: EXAM: Left lower pole posterior percutaneous nephrostomy tube placement Left nephrostogram and antegrade ureterogram DATE: 12/25/2021 DRY MILL OPERATOR: SANDY KHALIL MD INDICATION: Left-sided moderate to severe hydronephrosis with obstructing ureteral vesicular calculi with inability to treat patient cystoscopically who requires PCN, and will later require PCNU for PCNL. MEDICATIONS: Please see nursing report for full details. DEVICES: 8 Jordanian nephrostomy tube CONTRAST: Please see Service Associate report for full details PROCEDURE: The risks, benefits, and alternatives were discussed with the patient; informed consent was obtained. The patient was prepped and draped in a sterile fashion in the prone position. The left flank was evaluated with ultrasound. Under direct ultrasound guidance, the left lower pole posterior collecting system was punctured with a 21-gauge echo tipped needle. Urine was aspirated. Contrast was injected documenting the collecting system. Wire was passed under direct fluoroscopic guidance into the central portion of the collecting system and into the ureter. Needle was exchanged for a 6 Jordanian transitional dilator Accustick system. After the dilator was advanced over the wire, the wire, inner metal cannula and inner dilator were removed. Contrast was injected confirming position within the collecting system. 4 Jordanian catheter and Glidewire were then passed through the ureter and through the obstructing ureteral calculi and into the bladder. Contrast was injected to the bladder documenting location and demonstrating the large prostate. 0.035 inch Amplatz wire was advanced through the catheter. Transitional dilator was exchanged for an 8 Jordanian dilator. 8 Jordanian nephrostomy tube was then advanced over the wire. Wire was removed. The nephrostomy tube was positioned in the renal pelvis and the cope loop was successfully deployed. The nephrostomy tube was secured with 2-0 Ethilon. StatLock device was used to secure the nephrostomy tube. Nephrostomy tube was attached to a drainage bag. Patient tolerated the procedure well and was transferred out of the angiography suite in stable condition. FINDINGS: The left renal pelvis and collecting system is severely hydronephrotic with a floating renal calculi within the system and a large obstructing calculi at the ureterovesicular junction causing the resultant hydronephrosis. IMPRESSION: Nephrostograms and antegrade ureterogram of the left collecting system demonstrates the left renal pelvis and collecting system is severely hydronephrotic with a floating renal calculi within the system and a large obstructing calculi at the ureterovesicular junction causing the resultant hydronephrosis. Successful nephrostomy tube placement in the left collecting system through a lower pole posterior calyx.
[2021-12-25] MEDS: HYDROcodone/ACETAMINOPHEN 5-325 MG TAB PO PRN (16:42)
[2021-12-25] MEDS: D5W/0.45% NACL/KCL 20 MEQ 20 MEQ/1,000 ML BAG IV SCH (16:44)
[2021-12-25] MEDS: ceFAZolin/NS 1 GM/50 ML 1 GM/50 ML BAG IV SCH (16:45)
[2021-12-25] MEDS ORDERED: ZOLPIDEM 5 MG TAB PO PRN (22:00)
[2021-12-26] MEDS: ceFAZolin/NS 1 GM/50 ML 1 GM/50 ML BAG IV SCH ×2 (00:30→00:32)
[2021-12-26] MEDS: HYDROcodone/ACETAMINOPHEN 5-325 MG TAB PO PRN ×3 (00:37→15:53)
[2021-12-26] MEDS: D5W/0.45% NACL/KCL 20 MEQ 20 MEQ/1,000 ML BAG IV SCH (04:11)
--- NOTE | 2021-12-26 13:08 | Discharge Summary ---
Short Stay Discharge Plan Activity: other (no straing ) Weight Bearing Status: Full Weight Bearing Diet: low fat, low salt Wound: open to air Special Instructions: other (teach neph tube care ) Follow up with: JUDY JIM MD [Staff Physician] - 3 Days KRZYSZTOF MCCALLUM MD [Primary Care Provider] - 7 Days
--- NOTE | 2021-12-26 13:08 | Progress Note ---
Assessment and Plan insists on walters out perc draining well severe stricture urethra void prio to d/c santy prostate Subjective Date of service: 12/26/21 Principal diagnosis: stones huge prostate stricture Objective - Constitutional Vitals: Vital Signs - 12hr 12/26/21 12/26/21 04:43 08:00 Temperature 98.5 F Pulse Rate 70 Respiratory 20 Rate Blood Pressure 139/67 O2 Sat by Pulse 99 99 Oximetry General appearance: Present: no acute distress - Neck Neck: supple Extremities: no ischemia - Gastrointestinal General gastrointestinal: Present: soft, non-tender - Labs CBC & Chem 7: 12/25/21 07:39 12/24/21 12:00 Medications & Allergies - Medications Allergies/Adverse Reactions: Allergies aspirin Adverse Reaction (Verified 12/13/21 17:52) GI UPSET / ABD PAIN Home Medications: Home Medications Medication Instructions Recorded Confirmed Last Taken Type Tamsulosin [Flomax] 0.8 mg PO QDAY 09/21/13 12/25/21 12/23/21 09:00 History AtorvaSTATin [Lipitor] 40 mg PO QHS 05/14/21 12/24/21 12/23/21 22:00 History Lactobacillus Combination No.8 1 each PO DAILY 05/14/21 12/24/21 12/23/21 09:00 History [Adult Probiotic] Multivit-Min/FA/Lycopen/Lutein 1 each PO DAILY 05/14/21 12/24/21 12/23/21 09:00 History [Centrum Silver Tablet] amLODIPine [Norvasc] 5 mg PO DAILY 05/14/21 12/24/21 12/23/21 22:00 History Famotidine [Acid-Pep] 20 mg PO QDAY PRN 12/25/21 12/25/21 Unknown History Tadalafil [Cialis] 20 mg PO PRN PRN 12/25/21 12/25/21 Unknown History Active Medications: Generic Name Dose Route Start Last Admin Trade Name Freq PRN Reason Stop Dose Admin Acetaminophen 650 mg 12/24/21 12:03 Acetaminophen 325 Mg Tab PO Q4H PRN Pain MILD(1-3)/Fever >100.5/LINK Hydrocodone Bitart/Acetaminophen 2 each 12/24/21 12:03 12/26/21 08:24 Hydrocodone/Acetaminophen 5-325 Mg Tab PO 2 each Q6H PRN Administration Pain, Moderate (4-6) Potassium Chloride/Dextrose/Sod Cl 20 meq in 1,000 mls @ 125 mls/hr 12/24/21 12:00 12/26/21 04:11 D5w/0.45% Nacl/Kcl 20 Meq IV 125 mls/hr DIRECT [place] Administration Ondansetron HCl 4 mg 12/24/21 12:00 Ondansetron 4 Mg Odt Tab PO Q8H PRN Nausea And Vomiting Zolpidem Tartrate 5 mg 12/25/21 22:00 Zolpidem 5 Mg Tab PO QHS PRN Sleep
[2021-12-26 14:54] VITALS: BP 155/71
--- NOTE | 2021-12-26 16:09 | Progress Note ---
Assessment and Plan (1) Hypertension Current Visit: Yes Status: Acute Qualifiers: Hypertension type: primary hypertension Qualified Code(s): I10 - Essential (primary) hypertension Plan to address problem: Monitor blood pressure every shift, continue medical management. (2) Renal calculi Current Visit: Yes Status: Acute Plan to address problem: Interventional radiology team consulted. Patient is pending percutaneous nephrostomy tube in a.m. Subjective Date of service: 12/26/21 Principal diagnosis: stones huge prostate stricture Objective - Constitutional Vitals: Vital Signs - 12hr 12/26/21 12/26/21 12/26/21 04:43 08:00 13:10 Temperature 98.5 F 98.5 F Pulse Rate 70 79 Respiratory 20 22 Rate Blood Pressure 139/67 155/71 O2 Sat by Pulse 99 99 97 Oximetry - Labs CBC & Chem 7: 12/25/21 07:39 12/24/21 12:00
== END 2021-12-26 17:34 | disposition home or self-care (01) | DRG 694 ==
LOC: OR 05:53 → 3A 12:06
PROVIDERS: ADMIT Urology; ATTEND Urology
PROC: 0TJB8ZZ Inspection of Bladder, Via Natural or Artificial Opening Endoscopic (ICD-10-PCS; principal; 2021-12-24)
PROC: 0T9B30Z Drainage of Bladder with Drainage Device, Percutaneous Approach (ICD-10-PCS; 2021-12-24)
PROC: 0T913ZZ Drainage of Left Kidney, Percutaneous Approach (ICD-10-PCS; 2021-12-25)
DX: N13.1 Hydronephrosis with ureteral stricture, not elsewhere classified (principal); N35.919 Unspecified urethral stricture, male, unspecified site; N20.0 Calculus of kidney; I10 Essential (primary) hypertension; Z20.822 Contact with and (suspected) exposure to COVID-19
CPT/HCPCS: 36415; 50432; 74176; 74430; 80048; 85025; G0378; J3480; J3490; J7120; C1726; C1729; C1751; C1769; J0690; J1170; J1644; J1940; J1956; J2250; J2405; J2704; J3010; Q9967; Q9968; U0003

== ENCOUNTER 2022-01-14 06:19 | Observation (INO) | payer MEDICARE ==
[2022-01-14 07:40] LABS: Basophils % (Auto) 0.8 % (0.0-1.8); Eosinophils # (Auto) 0.4 K/mm3 (0.0-0.4); Eosinophils % (Auto) 9.3 % (0.0-4.3); Hematocrit 32.2 % (35.5-45.6); Hemoglobin 10.7 gm/dl (11.8-15.2); Lymphocytes # (Auto) 1.4 K/mm3 (1.2-5.4); Lymphocytes % (Auto) 31.3 % (13.4-35.0); Mean Corpuscular HGB Conc 33 % (32-34); Mean Corpuscular Volume 89 fl (84-94); Monocytes # (Auto) 0.5 K/mm3 (0.0-0.8); Monocytes % (Auto) 10.6 % (0.0-7.3); Platelet Count 272 K/mm3 (140-440); Red Blood Count 3.62 M/mm3 (3.65-5.03); Red Cell Distribution Width 13.4 % (13.2-15.2)
[2022-01-14 07:49] LABS: INR 0.93 (0.87-1.13)
[2022-01-14 07:50] LABS: Partial Thromboplastin Time 28.7 Sec. (24.2-36.6)
[2022-01-14 07:53] LABS: BUN/Creatinine Ratio 13; Blood Urea Nitrogen 13 mg/dL (9-20); Calcium 10.6 mg/dL (8.4-10.2)
[2022-01-14] MEDS ORDERED: SODIUM CHLORIDE 0.9% 1000 ML 1,000 ML IV SCH (08:00)
[2022-01-14 08:03] LABS: Hemolysis Index 9
[2022-01-14] MEDS ORDERED: HEPARIN/NS 5000 UNIT/500ML 500 ML IR ONE (09:02)
[2022-01-14] MEDS ORDERED: fentaNYL 100 MCG/2 ML INJ ONE (09:02)
[2022-01-14] MEDS ORDERED: MIDAZOLAM 2 MG/2 ML INJ ONE (09:02)
[2022-01-14] MEDS ORDERED: HYDROmorphone 1 MG/1 ML INJ IV PRN (09:57)
--- NOTE | 2022-01-14 09:58 | Anesthesia Day of Surgery ---
Anesthesia Day of Surgery - Day of Surgery Patient Examined: Yes Patient H&P Reviewed: Yes Patient is NPO: Yes
[2022-01-14] MEDS ORDERED: ceFAZolin/Water 2 GM/20 ML 2 GM/20 ML SYRINGE IV NR (10:00)
[2022-01-14] MEDS ORDERED: SODIUM CHLORIDE 0.9% 500 ML 500 ML IV ONE (10:06)
--- NOTE | 2022-01-14 10:11 | Operative Report ---
Operative Report Operative Report: EXAM: Left percutaneous nephrostomy tube nephrostogram Left ureterogram Fluoroscopic guided placement of a left percutaneous nephroureteral catheter DATE: 01/14/2022 SENIOR JAVA DEVELOPER: SANDY KHALIL MD INDICATION: Left obstructing ureteral vesicularcalculi MEDICATIONS: Please see nursing report for full details. DEVICES: 5 Malagasy pigtail catheter CONTRAST: Please see Psychiatric Np report for full detail PROCEDURE: The risks, benefits, and alternatives were discussed with the patient; informed consent was obtained. The patient was prepped and draped in a sterile fashion in the prone position. The left flank was evaluated with ultrasound. The existing left nephrostomy tube was prepped and draped in a sterile fashion. Sutures were cut and the area was infiltrated with lidocaine. Contrast and saline were injected through the nephrostomy tube creating a nephrostogram. There was a large left ureteral renal calculi and a left ureterovesicular calculi. There was minimal hydronephrosis. Wire and catheter were used to cross the ureter and were then used to cross into the bladder. Contrast was injected confirming position in the bladder. There is a large prostatic filling defect noted. Catheter was then exchanged for a 5 Malagasy pigtail catheter. Catheter was sutured with 2-0 Ethilon. Area was covered with 4 x 4's. Patient was then sent to the operating room. Patient tolerated the procedure well and was transferred out of the angiography suite in stable condition. FINDINGS: Successful placement of a left-sided nephroureteral catheter IMPRESSION: Successful placement of a left-sided nephroureteral catheter.
[2022-01-14] MEDS ORDERED: propofoL 200 MG/20 ML VIAL IV ONE (10:13)
[2022-01-14] MEDS ORDERED: HYDROmorphone 1 MG/1 ML INJ ONE (10:13)
[2022-01-14] MEDS ORDERED: LIDOCAINE MPF (2%) 20 MG/1 ML VIAL 5 ML ONE (10:13)
[2022-01-14] MEDS ORDERED: ROCURONIUM 50 MG/5 ML INJ IV ONE ×2 (10:14→11:54)
[2022-01-14] MEDS ORDERED: ONDANSETRON 4 MG/2 ML INJ IV PRN (10:30)
[2022-01-14] MEDS ORDERED: MINERAL OIL Light (Sterile) 10 ML VIAL TP ONE (11:57)
[2022-01-14] MEDS ORDERED: WATER FOR IRRIG STERILE 1,500 ML BOTTLE IR ONE (12:00)
[2022-01-14] MEDS ORDERED: SODIUM CHLORIDE 0.9% 1000 ML 1,000 ML ONE (12:05)
[2022-01-14] MEDS ORDERED: FUROSEMIDE 40 MG/4 ML INJ ONE (12:54)
[2022-01-14] MEDS ORDERED: NEOSTIGMINE 10MG/10 ML INJ MDV ONE (13:03)
[2022-01-14] MEDS ORDERED: ONDANSETRON 4 MG/2 ML INJ ONE (13:04)
[2022-01-14] MEDS ORDERED: GLYCOPYRROLATE 0.4 MG/2 ML INJ ONE (13:04)
[2022-01-14] MEDS: HYDROmorphone 1 MG/1 ML INJ IV PRN ×2 (13:35→13:45)
--- NOTE | 2022-01-14 15:47 | Fluoroscopy Report ---
INTRAOPERATIVE FLUOROSCOPY: LEFT URETEROSCOPY, STENT PLACEMENT, LITHOTRIPSY INDICATION: LT KIDNEY AND URETERAL STONE. TECHNIQUE: Intraoperative spot images were obtained during the procedure. FINDINGS: No unexpected intraoperative findings. Fluoroscopy Time: 2 minutes 56 seconds. Fluoroscopy Images: 9 . Signer Name: Angus Baugh MD Signed: 01/14/2022 3:43 PM Workstation Name: [id number]
[2022-01-14] MEDS ORDERED: ACETAMINOPHEN 325 MG TAB PO PRN (16:56)
[2022-01-14] MEDS ORDERED: KETOROLAC 30 MG/1 ML INJ IV PRN (16:56)
[2022-01-14] MEDS ORDERED: ONDANSETRON 4 MG ODT TAB PO PRN (16:56)
[2022-01-14] MEDS ORDERED: NALOXONE 0.4 MG/1 ML INJ IV PRN (16:56)
[2022-01-14] MEDS ORDERED: ZOLPIDEM 5 MG TAB PO PRN (17:27)
[2022-01-14] MEDS ORDERED: SODIUM CHLORIDE 0.9% IRRIG SOLN 2000 ML IR SCH (18:00)
[2022-01-14] MEDS: HYDROcodone/ACETAMINOPHEN 5-325 MG TAB PO PRN (18:19)
[2022-01-14] MEDS: ceFAZolin/NS 1 GM/50 ML 1 GM/50 ML BAG IV SCH (18:20)
--- NOTE | 2022-01-14 18:34 | Operative Report ---
DATE OF SURGERY: 01/14/2022 PREOPERATIVE DIAGNOSES: Hydronephrosis, large left distal ureteral stone, left renal stone. POSTOPERATIVE DIAGNOSES: Hydronephrosis, large left distal ureteral stone, left renal stone, with huge prostate. PROCEDURES: Left percutaneous nephrolithotomy, urethral dilatation and insertion of Councill catheter for urethral stricture and left percutaneous ureteroscopy with laser of stones and double-J stent. SURGEONS: Dr. Major and Dr. Warren. ANESTHESIA: General. FINDINGS: This is a gentleman with a 1 cm distal stone. The prostate was so big, we could not get near his trigone. He also had severe urethral stricture for years. He now presents for percutaneous access. DESCRIPTION OF PROCEDURE: The patient was brought to operating room and placed on the operating table. Following induction of anesthesia, the nurses could not get a catheter in. We dilated his stricture and placed a 16 Councill. At this point, he was placed prone and the nephrostomy tube tract was dilated and a safety wire coiled in the bladder with the double lumen catheter. Once the safety wire was in it, it was secured with a silk, we opened up the incision approximately an inch and dilated to 16-Martiniquais and then used a 24-Martiniquais balloon. We then placed a 24-Martiniquais sheath and used that as access . The renal stone was in a separate marin right below the access. We did not bother with that and tried to see it as well. We tried with a flexible scope at the end, but that was not our primary concern. Using the flexible ureteroscope, we were able to see the stone surrounded by some clots from the manipulation and Interventional Radiology and getting the safety wire down. Once we saw the stone, using the laser at 8 null, we lasered it into at least 10 pieces. The patient tolerated the procedure well. He looked really good. We placed a 7-Martiniquais 28 cm coil in the kidney and bladder, placed a nephrostomy tube and plugged it. He was brought to recovery room, minimal blood loss, approximately 50 mL, in stable condition. TID: [id number] RECEIPT: [id number] ALICIA/JERZY/VIS
[2022-01-14] MEDS: D5W/0.45% NACL/KCL 20 MEQ 20 MEQ/1,000 ML BAG IV SCH (18:49)
[2022-01-15] MEDS: HYDROcodone/ACETAMINOPHEN 5-325 MG TAB PO PRN ×2 (00:20→08:57)
[2022-01-15] MEDS: D5W/0.45% NACL/KCL 20 MEQ 20 MEQ/1,000 ML BAG IV SCH (05:00)
[2022-01-15] MEDS: ceFAZolin/NS 1 GM/50 ML 1 GM/50 ML BAG IV SCH ×2 (05:01→09:11)
--- NOTE | 2022-01-15 06:03 | Consultation ---
History of Present Illness - Reason for Consult Consult date: 01/14/22 Medical management Requesting physician: JUDY JIM - History of Present Illness Patient admitted for large left renal calculus Patient had left percutaneous nephrostomy tube nephrostogram Left ureterogram Fluoroscopic guided placement of a left percutaneous nephroureteral catheter. Under the care of urology and interventional radiology Pain is moderate in the left flank No fever or chills. Past History Past Medical History: hypertension, hyperlipidemia, other (BPH) Past Surgical History: Other (Left nephrostomy) Social history: lives with family, full code Family history: hypertension Medications and Allergies Allergies Allergy/AdvReac Type Severity Reaction Status Date / Time aspirin AdvReac Intermediate GI UPSET / Verified 01/14/22 06:53 ABD PAIN Home Medications Medication Instructions Recorded Confirmed Last Taken Type Tamsulosin [Flomax] 0.8 mg PO QDAY 09/21/13 01/14/22 01/13/22 History AtorvaSTATin [Lipitor] 40 mg PO QHS 05/14/21 01/14/22 01/13/22 History Lactobacillus Combination No.8 1 each PO DAILY 05/14/21 01/14/22 01/13/22 History [Adult Probiotic] Multivit-Min/FA/Lycopen/Lutein 1 each PO DAILY 05/14/21 01/14/22 01/13/22 History [Centrum Silver Tablet] amLODIPine 2.5 mg PO DAILY 05/14/21 01/14/22 01/13/22 History Famotidine [Acid-Pep] 20 mg PO QDAY PRN 12/25/21 01/14/22 01/13/22 History Tadalafil [Cialis] 20 mg PO PRN PRN 12/25/21 01/14/22 01/09/22 History Active Meds: Active Medications Acetaminophen (Acetaminophen 325 Mg Tab) 650 mg PO Q4H PRN PRN Reason: Pain MILD(1-3)/Fever >100.5/LINK Hydrocodone Bitart/Acetaminophen (Hydrocodone/Acetaminophen 5-325 Mg Tab) 2 each PO Q6H PRN PRN Reason: Pain, Moderate (4-6) Last Admin: 01/15/22 00:20 Dose: 2 each Potassium Chloride/Dextrose/Sod Cl (D5w/0.45% Nacl/Kcl 20 Meq) 20 meq in 1,000 mls @ 125 mls/hr IV DIRECT [place] Last Admin: 01/15/22 05:00 Dose: 125 mls/hr Cefazolin Sodium (Ancef/Ns 1 Gm/50 Ml) 1 gm in 50 mls @ 100 mls/hr IV Q8H [place]; Protocol Stop: 01/15/22 18:29 Last Admin: 01/15/22 05:01 Dose: 100 mls/hr Ketorolac Tromethamine (Ketorolac 30 Mg/1 Ml Inj) 15 mg IV Q6H PRN PRN Reason: Pain, Moderate (4-6) Stop: 01/19/22 16:55 Naloxone HCl (Naloxone 0.4 Mg/1 Ml Inj) 0.1 mg IV Q2MIN PRN PRN Reason: Res Rate </= 8 or 02 SAT < 92% Ondansetron HCl (Ondansetron 4 Mg Odt Tab) 4 mg PO Q8H PRN PRN Reason: Nausea And Vomiting Zolpidem Tartrate (Zolpidem 5 Mg Tab) 5 mg PO QHS PRN PRN Reason: Sleep Review of Systems All systems: negative Exam - Constitutional Vitals: Temp Pulse Resp BP Pulse Ox 98.9 F 84 20 153/80 98 01/15/22 04:16 01/15/22 04:16 01/15/22 04:16 01/15/22 04:16 01/15/22 04:16 General appearance: Present: no acute distress, well-nourished - EENT Eyes: Present: PERRL ENT: hearing intact, clear oral mucosa - Neck Neck: Present: supple, normal ROM - Respiratory Respiratory effort: normal Respiratory: bilateral: CTA - Cardiovascular Heart rate: 78 Rhythm: regular Heart Sounds: Present: S1 & S2. Absent: rub, click - Extremities Extremities: pulses symmetrical, No edema Peripheral Pulses: within normal limits - Abdominal General gastrointestinal: Present: soft, non-tender, non-distended, normal bowel sounds Male genitourinary: Present: normal - Integumentary Integumentary: Present: clear, warm, dry - Musculoskeletal Musculoskeletal: gait normal, strength equal bilaterally - Psychiatric Psychiatric: appropriate mood/affect, intact judgment & insight - Neurologic Neurologic: CNII-XII intact, moves all extremities Results - Labs CBC & Chem 7: 01/14/22 07:10 01/14/22 07:10 Labs: Abnormal lab results 01/14/22 01/14/22 01/14/22 Range/Units 07:10 07:10 07:10 RBC 3.62 L (3.65-5.03) M/mm3 Hgb 10.7 L (11.8-15.2) gm/dl Hct 32.2 L (35.5-45.6) % [place] % (Auto) 10.6 H (0.0-7.3) % Eos % (Auto) 9.3 H (0.0-4.3) % Glucose 103 H (75-100) mg/dL Calcium 10.6 H (8.4-10.2) mg/dL Crossmatch See Detail Assessment and Plan - Patient Problems (1) Hypertension Current Visit: No Status: Chronic Qualifiers: Hypertension type: primary hypertension Qualified Code(s): I10 - Essential (primary) hypertension Plan to address problem: Continue antihypertensives and adjust medications as necessary (2) Renal calculi Current Visit: No Status: Acute Plan to address problem: Patient had Fluoroscopic guided placement of a left percutaneous nephroureteral catheter. Further management as per Dr. Jim (3) BPH (benign prostatic hyperplasia) Current Visit: Yes Status: Chronic Qualifiers: Lower urinary tract symptom presence: symptoms present Plan to address problem: Continue tamsulosin (4) HLD (hyperlipidemia) Current Visit: Yes Status: Chronic Qualifiers: Hyperlipidemia type: mixed hyperlipidemia Qualified Code(s): E78.2 - Mixed hyperlipidemia Plan to address problem: Continue statins (5) DVT prophylaxis Current Visit: Yes Status: Acute Plan to address problem: On SCDs and GI prophylaxis (6) Advance care planning Current Visit: Yes Status: Acute Plan to address problem: Disease education conducted, care plan discussed, diagnosis discussed, prognosis discussed. Patient is full code. Patient acknowledges understanding and agreement with care plan. +30 minutes.
--- NOTE | 2022-01-15 12:09 | Progress Note ---
Assessment and Plan urine clear sig fragments severe stricture home with walters and plugged nt Subjective Date of service: 01/15/22 Objective - Constitutional Vitals: Vital Signs - 12hr 01/15/22 01/15/22 01/15/22 04:16 08:57 10:00 Temperature 98.9 F Pulse Rate 84 Respiratory 20 20 Rate Blood Pressure 153/80 O2 Sat by Pulse 98 97 Oximetry General appearance: Present: no acute distress - Neck Neck: supple - Respiratory Respiratory effort: normal Extremities: no ischemia - Gastrointestinal General gastrointestinal: Present: soft, non-tender - Labs CBC & Chem 7: 01/14/22 07:10 01/14/22 07:10 Labs: Abnormal lab results 01/14/22 Range/Units 07:10 Crossmatch See Detail Medications & Allergies - Medications Allergies/Adverse Reactions: Allergies aspirin Adverse Reaction (Intermediate, Verified 01/14/22 06:53) GI UPSET / ABD PAIN Home Medications: Home Medications Medication Instructions Recorded Confirmed Last Taken Type Tamsulosin [Flomax] 0.8 mg PO QDAY 09/21/13 01/14/22 01/13/22 History AtorvaSTATin [Lipitor] 40 mg PO QHS 05/14/21 01/14/22 01/13/22 History Lactobacillus Combination No.8 1 each PO DAILY 05/14/21 01/14/22 01/13/22 H istory [Adult Probiotic] Multivit-Min/FA/Lycopen/Lutein 1 each PO DAILY 05/14/21 01/14/22 01/13/22 History [Centrum Silver Tablet] amLODIPine 2.5 mg PO DAILY 05/14/21 01/14/22 01/13/22 History Famotidine [Acid-Pep] 20 mg PO QDAY PRN 12/25/21 01/14/22 01/13/22 History Tadalafil [Cialis] 20 mg PO PRN PRN 12/25/21 01/14/22 01/09/22 History Active Medications: Generic Name Dose Route Start Last Admin Trade Name Freq PRN Reason Stop Dose Admin Acetaminophen 650 mg 01/14/22 16:56 Acetaminophen 325 Mg Tab PO Q4H PRN Pain MILD(1-3)/Fever >100.5/LINK Hydrocodone Bitart/Acetaminophen 2 each 01/14/22 16:56 01/15/22 08:57 Hydrocodone/Acetaminophen 5-325 Mg Tab PO 2 each Q6H PRN Administration Pain, Moderate (4-6) Potassium Chloride/Dextrose/Sod Cl 20 meq in 1,000 mls @ 125 mls/hr 01/14/22 18:00 01/15/22 05:00 D5w/0.45% Nacl/Kcl 20 Meq IV 125 mls/hr DIRECT [place] Administration Cefazolin Sodium 1 gm in 50 mls @ 100 mls/hr 01/14/22 18:00 01/15/22 09:11 Ancef/Ns 1 Gm/50 Ml IV 01/15/22 18:29 100 mls/hr Q8H [place] Administration Protocol Ketorolac Tromethamine 15 mg 01/14/22 16:56 Ketorolac 30 Mg/1 Ml Inj IV 01/19/22 16:55 Q6H PRN Pain, Moderate (4-6) Naloxone HCl 0.1 mg 01/14/22 16:56 Naloxone 0.4 Mg/1 Ml Inj IV Q2MIN PRN Res Rate </= 8 or 02 SAT < 92% Ondansetron HCl 4 mg 01/14/22 16:56 Ondansetron 4 Mg Odt Tab PO Q8H PRN Nausea And Vomiting Zolpidem Tartrate 5 mg 01/14/22 17:27 Zolpidem 5 Mg Tab PO QHS PRN Sleep
[2022-01-15 12:10] VITALS: BP 115/67
--- NOTE | 2022-01-15 12:11 | Discharge Summary ---
Short Stay Discharge Plan Activity: other (no strasining ) Weight Bearing Status: Full Weight Bearing Diet: low fat, low cholesterol, low salt Wound: change dressing Special Instructions: other (teach walters care ) Durable Medical Equipment Needed Upon Discharge: other (neph tube and walters ) Follow up with: KRZYSZTOF MCCALLUM MD [Primary Care Provider] - 7 Days JUDY JIM MD [Staff Physician] - 01/21/22
--- NOTE | 2022-01-15 13:01 | Post Operative Note ---
Date of procedure: 01/14/22 Pre-op diagnosis: large ureteral and renal stone Post-op diagnosis: same Findings: huge prostate stricture Procedure: left perc ureteroscopy lasetr Anesthesia: GETA Surgeon: JUDY JIM Tennis Coach: SUZANNA NORTON Estimated blood loss: 50-100ml Pathology: none Condition: stable Disposition: PACU
== END 2022-01-15 15:05 | disposition home or self-care (01) ==
LOC: CATHLABREC 06:19 → 3A 16:56
PROVIDERS: ADMIT Urology; ATTEND Urology
DX: N20.0 Calculus of kidney (principal); N40.0 Benign prostatic hyperplasia without lower urinary tract symptoms; N35.919 Unspecified urethral stricture, male, unspecified site; Z79.899 Other long term (current) drug therapy; Z98.890 Other specified postprocedural states
CPT/HCPCS: 36415; 50080; 50389; 50431; 74485; 80048; 85025; 85610; 85730; 86850; 86900; 86901; 86920; 96365; 96366; C1726; C1751; C1769; C1894; C2617; G0378; J0690; J1170; J1644; J1815; J1940; J1956; J2250; J2405; J2704; J2710; J3010; J3480; J3490; J7030; Q9967; 50433; J7120; Q0162

== ENCOUNTER 2022-01-17 12:54 | Emergency (ER) | payer MEDICARE ==
[2022-01-17 13:16] VITALS: BP 107/60
--- NOTE | 2022-01-17 14:38 | Emergency Department Report ---
ED Male HPI - General Chief complaint: Urogenital-Male Stated complaint: COMPLICATIONS FROM SURGERY Time Seen by Provider: 01/17/22 14:07 Source: patient Mode of arrival: Wheelchair Limitations: No Limitations - History of Present Illness Initial comments: Patient is 76 years old male with history of hypertension kidney stone. Patient had a nephrostomy tube placed 3 days ago in his hospital. Patient presented to the ER stating that his Horton catheter is leaking and he has blood and blood clots in it. Patient denied any fever or chills. He denied any back pain. Complaint: other (Hematuria) - Related Data Home Medications Medication Instructions Recorded Confirmed Last Taken Tamsulosin [Flomax] 0.8 mg PO QDAY 09/21/13 01/14/22 01/13/22 AtorvaSTATin [Lipitor] 40 mg PO QHS 05/14/21 01/14/22 01/13/22 Lactobacillus Combination No.8 1 each PO DAILY 05/14/21 01/14/22 01/13/22 [Adult Probiotic] Multivit-Min/FA/Lycopen/Lutein 1 each PO DAILY 05/14/21 01/14/22 01/13/22 [Centrum Silver Tablet] amLODIPine 2.5 mg PO DAILY 05/14/21 01/14/22 01/13/22 Famotidine [Acid-Pep] 20 mg PO QDAY PRN 12/25/21 01/14/22 01/13/22 Tadalafil [Cialis] 20 mg PO PRN PRN 12/25/21 01/14/22 01/09/22 Allergies Allergy/AdvReac Type Severity Reaction Status Date / Time aspirin AdvReac Intermediate GI UPSET / Verified 01/14/22 06:53 ABD PAIN ED Review of Systems ROS: Stated complaint: COMPLICATIONS FROM SURGERY Other details as noted in HPI Comment: All other systems reviewed and negative Constitutional: denies: chills, fever Respiratory: denies: cough, shortness of breath, SOB with exertion Cardiovascular: denies: chest pain, palpitations Gastrointestinal: denies: abdominal pain, nausea, vomiting Musculoskeletal: denies: back pain Neurological: denies: headache, weakness, numbness, paresthesias ED Past Medical Hx - Past Medical History Hx Hypertension: Yes (X 3 YRS) Hx GERD: Yes (PRN MEDS) Hx Liver Disease: No Hx Renal Disease: No Hx Sickle Cell Disease: No Hx Kidney Stones: Yes - Surgical History Additional Surgical History: Cystoscopy for Urethral stricture. - Social History Smoking Status: Never Smoker - Medications Home Medications: Home Medications Medication Instructions Recorded Confirmed Last Taken Type Tamsulosin [Flomax] 0.8 mg PO QDAY 09/21/13 01/14/22 01/13/22 History AtorvaSTATin [Lipitor] 40 mg PO QHS 05/14/21 01/14/22 01/13/22 History Lactobacillus Combination No.8 1 each PO DAILY 05/14/21 01/14/22 01/13/22 History [Adult Probiotic] Multivit-Min/FA/Lycopen/Lutein 1 each PO DAILY 05/14/21 01/14/22 01/13/22 History [Centrum Silver Tablet] amLODIPine 2.5 mg PO DAILY 05/14/21 01/14/22 01/13/22 History Famotidine [Acid-Pep] 20 mg PO QDAY PRN 12/25/21 01/14/22 01/13/22 History Tadalafil [Cialis] 20 mg PO PRN PRN 12/25/21 01/14/22 01/09/22 History ED Physical Exam - General Limitations: No Limitations General appearance: alert, in no apparent distress - Head Head exam: Present: atraumatic, normocephalic, normal inspection - Eye Eye exam: Present: normal appearance - ENT ENT exam: Present: normal exam, normal orophraynx, mucous membranes moist - Neck Neck exam: Present: normal inspection, full ROM. Absent: tenderness, meningismus - Respiratory Respiratory exam: Present: normal lung sounds bilaterally - Cardiovascular Cardiovascular Exam: Present: regular rate, normal rhythm, normal heart sounds - GI/Abdominal GI/Abdominal exam: Present: soft, normal bowel sounds. Absent: distended, tenderness, guarding, rebound, rigid, organomegaly, mass, bruit, pulsatile mass, hernia - Extremities Exam Extremities exam: Present: normal inspection, full ROM, normal capillary refill - Back Exam Back exam: Present: normal inspection, full ROM. Absent: CVA tenderness (R), CVA tenderness (L) - Neurological Exam Neurological exam: Present: alert, oriented X3, CN II-XII intact - Psychiatric Psychiatric exam: Present: normal mood - Skin Skin exam: Present: warm, intact, normal color ED Course Vital Signs 01/17/22 13:13 Temperature 98.4 F Pulse Rate 90 Respiratory 18 Rate Blood Pressure 107/60 [Right] O2 Sat by Pulse 97 Oximetry ED Medical Decision Making - Medical Decision Making Patient is 76 years old male with history of hypertension kidney stone. Patient had a nephrostomy tube placed 3 days ago in his hospital. Patient presented to the ER stating that his Horton catheter is leaking and he has blood and blood clots in it. Patient denied any fever or chills. He denied any back pain. Upon careful exam there is no leaking from the catheter. However there is a lot of clots. Patient irrigated with 4L of normal saline. Irrigation is clear. Iam holguin advised to follow-up with Dr. Doss in the morning and to return to the ER if he develop any new symptoms. Critical care attestation.: If time is entered above; I have spent that time in minutes in the direct care of this critically ill patient, excluding procedure time. ED Disposition Clinical Impression: Horton catheter problem Disposition: 01 HOME / SELF CARE / HOMELESS Is pt being admited?: No Condition: Stable Instructions: Indwelling Urinary Catheter Care, Adult Referrals: PRIMARY CAREMD [Primary Care Provider] - 3-5 Days JUDY JIM MD [Staff Physician] - 3-5 Days
[2022-01-17] MEDS ORDERED: SODIUM CHLORIDE IRRI 500 ML 1,000 ML IR ONE ×3 (14:55→18:51)
[2022-01-17] MEDS ORDERED: ONDANSETRON 4 MG ODT TAB PO ONE (15:36)
[2022-01-17] MEDS ORDERED: oxyCODONE /ACETAMINOPHEN 5-325MG TAB PO ONE (15:36)
== END 2022-01-17 19:28 | disposition home or self-care (01) ==
LOC: ED 12:54
DX: T83.098A Other mechanical complication of other urinary catheter, initial encounter (principal); I10 Essential (primary) hypertension; Z88.6 Allergy status to analgesic agent
CPT/HCPCS: 99282; J3490; Q0162

== ENCOUNTER 2022-01-20 06:32 | Emergency (ER) | payer MEDICARE ==
[2022-01-20 07:26] VITALS: BP 164/83
[2022-01-20] MEDS ORDERED: MORPHINE 4 MG/1 ML INJ IM ONE (07:46)
[2022-01-20] MEDS ORDERED: PHENAZOPYRIDINE 200 MG TAB PO ONE (07:46)
--- NOTE | 2022-01-20 07:49 | Emergency Department Report ---
ED General Adult HPI - General Chief complaint: Urogenital-Male Stated complaint: PAIN DUE TO STENT OR CATHERER Time Seen by Provider: 01/20/22 07:45 Source: patient Mode of arrival: Ambulatory Limitations: No Limitations - History of Present Illness Initial comments: Patient presents secondary to discomfort with his Horton catheter. He has an indwelling Horton catheter. This was placed with significant difficulty due to his urethral stricture as well as BPH. Patient states that it kind of pulled and it has been uncomfortable since then. He talked to his urologist who said that he could simply "cut the catheter", but he states he is never done that before. He really does not want it removed or replaced. Patient has bladder spasms. He is also complaining of left flank pain. He has nephrostomy tube in place. It is been present for 1 week now. Patient has no history of travel or trauma. He has not had hematuria. He denies fevers or chills. There is no cough or congestion. His focus of concern was of pain control. As long as we can control his pain, he would like to go home. Severity scale (0 -10): 5 - Related Data Home Medications Medication Instructions Recorded Confirmed Last Taken Tamsulosin [Flomax] 0.8 mg PO QDAY 09/21/13 01/14/22 01/13/22 AtorvaSTATin [Lipitor] 40 mg PO QHS 05/14/21 01/14/22 01/13/22 Lactobacillus Combination No.8 1 each PO DAILY 05/14/21 01/14/22 01/13/22 [Adult Probiotic] Multivit-Min/FA/Lycopen/Lutein 1 each PO DAILY 05/14/21 01/14/22 01/13/22 [Centrum Silver Tablet] amLODIPine 2.5 mg PO DAILY 05/14/21 01/14/22 01/13/22 Famotidine [Acid-Pep] 20 mg PO QDAY PRN 12/25/21 01/14/22 01/13/22 Tadalafil [Cialis] 20 mg PO PRN PRN 12/25/21 01/14/22 01/09/22 Previous Rx's Medication Instructions Recorded Last Taken Type HYDROcodone/APAP 5-325 [[place] 1 each PO Q6HR PRN #12 tablet 01/20/22 Unknown Rx 5/325] Allergies Allergy/AdvReac Type Severity Reaction Status Date / Time aspirin AdvReac Intermediate GI UPSET / Verified 01/14/22 06:53 ABD PAIN ED Review of Systems ROS: Stated complaint: PAIN DUE TO STENT OR CATHERER Other details as noted in HPI Comment: All other systems reviewed and negative Constitutional: denies: fever Eyes: denies: vision change ENT: denies: epistaxis Respiratory: denies: cough Cardiovascular: denies: chest pain Endocrine: denies: unexplained weight loss Gastrointestinal: as per HPI Genitourinary: as per HPI Musculoskeletal: as per HPI Skin: denies: rash Neurological: denies: headache Hematological/Lymphatic: denies: easy bruising ED Past Medical Hx - Past Medical History Previous Medical History?: Yes Hx Hypertension: Yes (X 3 YRS) Hx GERD: Yes (PRN MEDS) Hx Liver Disease: No Hx Renal Disease: No Hx Sickle Cell Disease: No Hx Kidney Stones: Yes Additional medical history: BPH, urethral stricture - Surgical History Past Surgical History?: Yes Additional Surgical History: Cystoscopy for Urethral stricture. - Family History Family history: hypertension - Social History Smoking Status: Never Smoker - Medications Home Medications: Home Medications Medication Instructions Recorded Confirmed Last Taken Type Tamsulosin [Flomax] 0.8 mg PO QDAY 09/21/13 01/14/22 01/13/22 History AtorvaSTATin [Lipitor] 40 mg PO QHS 05/14/21 01/14/22 01/13/22 History Lactobacillus Combination No.8 1 each PO DAILY 05/14/21 01/14/22 01/13/22 History [Adult Probiotic] Multivit-Min/FA/Lycopen/Lutein 1 each PO DAILY 05/14/21 01/14/22 01/13/22 History [Centrum Silver Tablet] amLODIPine 2.5 mg PO DAILY 05/14/21 01/14/22 01/13/22 History Famotidine [Acid-Pep] 20 mg PO QDAY PRN 12/25/21 01/14/22 01/13/22 History Tadalafil [Cialis] 20 mg PO PRN PRN 12/25/21 01/14/22 01/09/22 History HYDROcodone/APAP 5-325 [[place] 1 each PO Q6HR PRN #12 tablet 01/20/22 Unknown Rx 5/325] ED Physical Exam - General Limitations: No Limitations, Other (Pulse ox noted and normal) General appearance: alert, in no apparent distress, other (He appears uncomfortable) - Head Head exam: Present: atraumatic - Eye Eye exam: Present: normal appearance, PERRL, EOMI. Absent: scleral icterus - ENT ENT exam: Present: normal orophraynx, normal external ear exam - Neck Neck exam: Present: normal inspection. Absent: meningismus - Respiratory Respiratory exam: Present: normal lung sounds bilaterally. Absent: respiratory distress - Cardiovascular Cardiovascular Exam: Present: regular rate, normal rhythm - GI/Abdominal GI/Abdominal exam: Present: soft, tenderness (Suprapubic). Absent: distended, guarding, rebound, pulsatile mass - External exam: Present: other (Horton catheter in place. There is no blood in the Horton bag. The balloon is apparently intact as there is resistance with any type of traction on the catheter.) - Extremities Exam Extremities exam: Present: normal capillary refill - Back Exam Back exam: Present: CVA tenderness (L) (Nephrostomy tube in place). Absent: CVA tenderness (R) - Neurological Exam Neurological exam: Present: alert, oriented X3, CN II-XII intact, normal gait. Absent: motor sensory deficit - Psychiatric Psychiatric exam: Present: normal affect, normal mood - Skin Skin exam: Present: warm, dry ED Course Vital Signs 01/20/22 07:23 Temperature 98.8 F Pulse Rate 107 H Respiratory 17 Rate Blood Pressure 164/83 [Right] O2 Sat by Pulse 100 Oximetry - Reevaluation(s) Reevaluation #1: 01/20/22 08:49 Catheter was irrigated. The nephrostomy tube dressing was changed. Patient was given analgesics and subsequently discharged. Bladder scan was completed to exclude urinary retention. ED Medical Decision Making - Medical Decision Making Patient presents with penile discomfort and bladder spasms secondary to a Horton catheter. He was reluctant to have it removed and replaced because it was difficult to put in. He has no fevers or chills. There is no cough or congestion. There is no blood in the urine. I am not concerned that the catheter has been dislodged. He certainly does not have fever that would suggest any type of systemic urinary infection or pyelonephritis. Nephrostomy tube dressing was changed. The insertion site appears to be clean and intact. Patient does not have evidence of urinary retention. He was referred back to his urologist and he can see them Friday. Critical Care Time: No Critical care attestation.: If time is entered above; I have spent that time in minutes in the direct care of this critically ill patient, excluding procedure time. ED Disposition Clinical Impression: Bladder spasm Disposition: HOME / SELF CARE / HOMELESS Is pt being admited?: No Condition: Stable Additional Instructions: Drink plenty of water. Continue home medication. Follow-up with your family doctor and the urologist for recheck. Return for any problems or concerns. Prescriptions: HYDROcodone/APAP 5-325 [[place] 5/325] 1 each PO Q6HR PRN #12 tablet PRN Reason: Pain Referrals: PRIMARY CARE, [Referring] - 3-5 Days JUDY JIM MD [Staff Physician] - 3-5 Days
== END 2022-01-20 09:57 | disposition home or self-care (01) ==
LOC: ED 06:32
DX: N32.89 Other specified disorders of bladder (principal); Z88.6 Allergy status to analgesic agent; I10 Essential (primary) hypertension
CPT/HCPCS: 51798; 99282; J2270

== ENCOUNTER 2022-01-31 09:06 | Day surgery (SDC) | payer MEDICARE ==
[~2022-01-31 09:06] MED LIST: ACETAMINOPHEN 500 MG TAB PO SCH; LACTATED RINGERS 1,000 ML IV SCH
[2022-01-31 11:17] LABS: Hemoglobin 10.6 gm/dl (11.8-15.2); Mean Corpuscular HGB Conc 34 % (32-34); Mean Corpuscular Volume 88 fl (84-94); Platelet Count 343 K/mm3 (140-440); Red Blood Count 3.51 M/mm3 (3.65-5.03); Red Cell Distribution Width 13.2 % (13.2-15.2)
[2022-01-31 11:37] LABS: BUN/Creatinine Ratio 9; Blood Urea Nitrogen 10 mg/dL (9-20); Hemolysis Index 5
[2022-01-31] MEDS ORDERED: propofoL 200 MG/20 ML VIAL IV ONE (11:49)
[2022-01-31] MEDS ORDERED: ROCURONIUM 50 MG/5 ML INJ IV ONE (11:49)
[2022-01-31] MEDS ORDERED: LIDOCAINE MPF (2%) 20 MG/1 ML VIAL 5 ML ONE (11:49)
[2022-01-31] MEDS ORDERED: fentaNYL 100 MCG/2 ML INJ ONE (11:49)
[2022-01-31] MEDS ORDERED: ceFAZolin/STERILE WATER 2 GM/20 ML SYRINGE IV NR (11:50)
[2022-01-31] MEDS ORDERED: ceFAZolin/Water 2 GM/20 ML 2 GM/20 ML SYRINGE IV ONE (11:56)
[2022-01-31] MEDS ORDERED: ONDANSETRON 4 MG/2 ML INJ IV PRN (12:04)
--- NOTE | 2022-01-31 12:04 | Anesthesia Day of Surgery ---
Anesthesia Day of Surgery - Day of Surgery Patient Examined: Yes Patient H&P Reviewed: Yes Patient is NPO: Yes
--- NOTE | 2022-01-31 12:04 | Anesthesia Consultation ---
Anesthesia Consult and Med Hx Date of service: 01/31/22 - Airway Anesthetic Teeth Evaluation: Dentures ROM Head & Neck: Adequate Mental/Hyoid Distance: Adequate Mallampati Class: Class II Intubation Access Assessment: Probably Good (previous easy intubation w/ MAC 3) - Pre-Operative Health Status ASA Pre-Surgery Classification: ASA2 Proposed Anesthetic Plan: General - Pulmonary Hx Smoking: Yes (former smoker quit 5yrs ago) Hx Respiratory Symptoms: No - Cardiovascular System Hx Hypertension: Yes Hx Heart Attack/AMI: No Hx Percutaneous Transluminal Coronary Angioplasty (PTCA): No Hx Cardia Arrhythmia: No - Central Nervous System CVA: No - Endocrine Hx Renal Disease: No Hx Liver Disease: No Hx Insulin Dependent Diabetes: No Hx Non-Insulin Dependent Diabetes: No Hx Thyroid Disease: No - Hematic Hx Anemia: Yes - Other Systems Hx Substance Use: Yes (THC 3-4x/wk) - Additional Comments Anesthesia Medical History Comments: No hx anesthetic complications. Reports hoarseness after most recent anesthetic. Anes record from that surgery reviewed; intubation described as "easy," no mention of airway trauma.
[2022-01-31] MEDS ORDERED: ePHEDrine SULFATE 50 MG/1 ML INJ ONE (12:57)
[2022-01-31] MEDS ORDERED: WATER FOR IRRIG STERILE 2000 ML IR ONE (14:30)
[2022-01-31] MEDS ORDERED: GLYCOPYRROLATE 0.4 MG/2 ML INJ ONE (14:35)
[2022-01-31] MEDS ORDERED: NEOSTIGMINE 10MG/10 ML INJ MDV ONE (14:35)
[2022-01-31] MEDS ORDERED: dexAMETHasone 20 MG/5 ML VIAL ONE (14:35)
[2022-01-31] MEDS ORDERED: KETOROLAC 30 MG/1 ML INJ ONE (14:35)
[2022-01-31] MEDS ORDERED: ONDANSETRON 4 MG/2 ML INJ ONE (14:35)
[2022-01-31] MEDS ORDERED: LACTATED RINGERS 1,000 ML ONE (14:36)
--- NOTE | 2022-01-31 14:41 | Post Operative Note ---
Pre-op diagnosis: large distal ureteral stone Post-op diagnosis: same Findings: as above Procedure: cysto nephroscopy ureteroscopy laser stent Anesthesia: GETA Surgeon: JUDY JIM Estimated blood loss: minimal Pathology: none Condition: stable Disposition: PACU
--- NOTE | 2022-01-31 14:42 | Discharge Summary ---
Short Stay Discharge Plan Activity: other (no steraining ) Weight Bearing Status: Full Weight Bearing Diet: low fat, low cholesterol, low salt Special Instructions: other (teach walters care ) Durable Medical Equipment Needed Upon Discharge: other (walters and j stent ) Follow up with: KRZYSZTOF MCCALLUM MD [Primary Care Provider] - 7 Days JUDY JIM MD [Staff Physician] - 7 Days
[2022-01-31] MEDS: HYDROmorphone 1 MG/1 ML INJ IV PRN ×2 (15:10→15:20)
--- NOTE | 2022-01-31 15:44 | Operative Report ---
DATE OF SURGERY: 01/31/2022 PREOPERATIVE DIAGNOSES: Severe urethral stricture disease, huge prostate and left distal stone with hydronephrosis. POSTOPERATIVE DIAGNOSES: Severe urethral stricture disease, huge prostate and left distal stone with hydronephrosis. PROCEDURES: Cystoscopy and extraction of the wire with attempted low ureteroscopy over the big prostate, with percutaneous nephroscopy and percutaneous ureteroscopy and laser of stone and reinsertion of double-J stent. SURGEON: Josef Major MD ANESTHESIA: General. FINDINGS: This is a gentleman with a huge prostate, distal stone, who was going to lose his kidney and he had a 1 cm stone. It was hard to do lithotripsy and he presents for second stage ureteroscopy. DESCRIPTION OF PROCEDURE: The patient was brought to operating room and placed on the operating table. Following induction of anesthesia, he was placed in a lithotomy position, and prepped and draped in the usual sterile fashion. We used cystoscopy once we did get access to the left kidney. Nephroscopy extracted the stent partially and two wires coiled in the bladder over this huge prostate. We tried ureteroscopy after we dilated the urethra because he has a 3 cm mid-urethral stricture, and once we got in, the orifices were tucked in way below this intravesical lobe, so there is no way we can get access, even though we had through and through wire. We were able to extract the wire through the meatus, so we had the wire through the meatus and through the flank. At this point, we tried with a flexible scope, could not get it, but we were able to get a balloon and dilate the distal ureter. It was quite helpful. Once we tried again from below, the wire and the scope kept coiling back over the prostate. We did not want to cause any significant bleeding. We then went from above and we were able to see the stones and broke them in even smaller pieces. Many of them we pushed in the bladder. The patient tolerated the procedure well. We left an 18 [address] in the penis. The nephrostomy tube was taken out. We left the string, so we would not have to scope him in the office because that would be quite difficult. He was brought to recovery room, minimal blood loss, in a stable condition. TID: [id number] RECEIPT: ALICIA/TATIANA
[2022-01-31 16:12] VITALS: BP 140/68
--- NOTE | 2022-01-31 16:31 | Fluoroscopy Report ---
Fluoroscopic ureterogram INDICATION: Left ureteral calculus IMPRESSION: Status post removal of ureteral calculus and replacement of left double-J ureteral stent. Fluoroscopy time: 4 minutes 24 seconds. Fluoroscopic images: 7. Signer Name: Aj Fay MD Signed: 01/31/2022 4:26 PM Workstation Name: [id number]
== END 2022-01-31 16:40 | disposition home or self-care (01) ==
LOC: OR 09:06
PROVIDERS: ATTEND Urology
DX: N13.1 Hydronephrosis with ureteral stricture, not elsewhere classified (principal); N13.2 Hydronephrosis with renal and ureteral calculous obstruction; I10 Essential (primary) hypertension; E78.5 Hyperlipidemia, unspecified; K21.9 Gastro-esophageal reflux disease without esophagitis; Z72.89 Other problems related to lifestyle; Z20.822 Contact with and (suspected) exposure to COVID-19; Z88.6 Allergy status to analgesic agent; Z79.899 Other long term (current) drug therapy; Z87.891 Personal history of nicotine dependence; Z98.49 Cataract extraction status, unspecified eye; Z98.890 Other specified postprocedural states; Z80.8 Family history of malignant neoplasm of other organs or systems
CPT/HCPCS: 36415; 52356; 74485; 80048; 85027; 86850; 86900; 86901; C1726; C1758; C1769; C2617; J0690; J1100; J1170; J1815; J1885; J2405; J2704; J2710; J3010; J3490; J7120; Q9967; U0003

== ENCOUNTER 2022-02-15 10:26 | Outpatient (CLI) | payer MEDICARE ==
--- NOTE | 2022-02-15 13:33 | XRay Report ---
CHEST 2 VIEWS INDICATION: R63.4 ABNORMAL WEIGHT LOSS. COMPARISON: none FINDINGS: Support devices: None. Heart: Within normal limits. Lungs/pleura: No acute air space or interstitial disease. Trace right pleural effusion is identified. No pneumothorax. Additional findings: None. IMPRESSION: Trace right pleural effusion, otherwise, unremarkable exam. Signer Name: Garcia Nelson Jr, MD Signed: 02/15/2022 1:29 PM Workstation Name: [id number]
== END 2022-02-15 10:27 | disposition home or self-care (01) ==
LOC: XRAY 10:26
PROVIDERS: ATTEND Internal Medicine
DX: J90 Pleural effusion, not elsewhere classified (principal); R63.4 Abnormal weight loss
CPT/HCPCS: 71046